=== PATIENT | female | born 1940 | race Caucasian/White ===

== ENCOUNTER 2018-06-17 19:41 | Emergency (ER) | payer MEDICARE, OTHER ==
--- NOTE | 2018-06-17 20:23 | ED.PDOC ---
History of Present Illness - General Chief Complaint: GI Problem Stated Complaint: diarrhea several weeks Time Seen by Provider: 06/17/18 19:53 Source: patient Exam Limitations: no limitations - History of Present Illness Initial Comments: Patient presents with diarrhea for 5 weeks. She says that she has up to three loose bms per day and that she has to use Immodium to make it stop. She reports that she can go a day or two every once in a while without diarrhea. She has not been eating as well but she says that is because she is the process of moving from [place] to [place] and that has been very busy for her. She has occasionally had N/V but it is not a daily or even a weekly symptom. No travel out of the country nor recent camping. No similarly sick contacts. Denies abdominal pain. She is s/p appendectomy/cholecystoectomy/TAHBSO/partial gastrectomy due to ulcers. She has been drinking a lot more water but not urinating more. She has IDDM and says that her blood sugars have been running 200-400s. She is 89 here today. No other complaints. Timing/Duration: other - 5 weeks Severity: moderate Improving Factors: nothing Worsening Factors: nothing Associated Symptoms: loss of appetite, nausea/vomiting Allergies/Adverse Reactions: Allergies NO KNOWN ALLERGY Allergy (Verified 07/14/16 08:22) Home Medications: Ambulatory Orders Szsnwdbcfmcxu-Ztka-Bprcllmliz [Fioricet] 1 ea PO Q8H PRN #21 tab 07/14/16 Atenolol [Tenormin] 50 mg PO DAILY 07/14/16 Cetirizine HCl 10 mg PO DAILY 07/14/16 Furosemide [Lasix] 20 mg PO DAILY 07/14/16 Gabapentin [Neurontin] 600 mg PO BID 07/14/16 Insulin Aspart [Novolog] See Protocol SC ACHS 07/14/16 Insulin Glargine [Lantus Solostar] 80 units SC BEDTIME 07/14/16 Insulin Glargine [Lantus Solostar] 90 unit SC DAILY@0700 07/14/16 Lisinopril & Hydrochlorothiazi [Lisinopril/Hctz 20-25 mg] 1 tab PO DAILY Metformin HCl 500 mg PO QPM 07/14/16 Omeprazole Magnesium [Prilosec Otc] 20 mg PO ACBK 07/14/16 Potassium Chloride Tab [K-Dur] 20 meq PO DAILY 07/14/16 Sertraline HCl [Zoloft] 100 mg PO DAILY 07/14/16 Warfarin Sodium 7.5 mg PO BEDTIME 07/14/16 Tizanidine HCl [Zanaflex] 4 mg PO Q8H #20 cap 07/16/16 Amoxicillin & Pot Clavulanate [Augmentin Tab] 875 mg PO TID #30 tab 06/17/18 Review of Systems - Review of Systems Constitutional: States: no symptoms reported EENTM: States: no symptoms reported Respiratory: States: no symptoms reported Cardiology: States: no symptoms reported Gastrointestinal/Abdominal: States: see HPI Genitourinary: States: see HPI Musculoskeletal: States: no symptoms reported Skin: States: no symptoms reported Neurological: States: no symptoms reported Endocrine: States: no symptoms reported Hematologic/Lymphatic: States: no symptoms reported Past Medical History (General) - Patient Medical History Hx Seizures: No Hx Stroke: Yes Hx Asthma: No Hx of COPD: Yes Hx Cardiac Disorders: Yes - A-fib Hx Congestive Heart Failure: Yes Hx Pacemaker: No Hx Hypertension: Yes Hx Diabetes: Yes Hx Gastroesophageal Reflux: Yes Hx Cancer: Yes - uterine Hx MRSA: No Surgical History: appendectomy, cholecystectomy, gastric bypass, Hysterectomy - Vaccination History Hx Tetanus, Diphtheria Vaccination: Yes Hx Influenza Vaccination: Yes Hx Pneumococcal Vaccination: No - Social History Hx Tobacco Use: Yes Hx Alcohol Use: No Hx Substance Use: No Hx Physical Abuse: No Hx Emotional Abuse: Yes Family Medical History - Family History Mother Living Status: Hx Cardiac Disease: Yes Hx Family Diabetes: Yes Physical Exam - Physical Exam General Appearance: Alert Eye Exam: bilateral normal Ears, Nose, Throat: hearing grossly normal, normal ENT inspection Neck: non-tender, full range of motion, supple Respiratory: lungs clear, normal breath sounds Cardiovascular/Chest: normal peripheral pulses, regular rate, rhythm, no edema Gastrointestinal/Abdominal: normal bowel sounds, non tender, soft Back Exam: normal inspection, no CVA tenderness Extremity: normal range of motion, non-tender, normal inspection Neurologic: admeasurer II-XII nml as tested, no motor/sensory deficits, alert, normal mood/affect, oriented x 3 Skin Exam: normal color Lymphatic: no adenopathy Progress - Progress Progress: 06/17/18 22:10 Laboratory Tests 06/17/18 06/17/18 06/17/18 19:57 20:22 20:25 WBC 9.8 RBC 5.04 Hgb 15.8 Hct 47.5 H MCV 94.3 MCH 31.3 H MCHC 33.3 RDW 13.8 Plt Count 299 MPV 8.6 Absolute Neuts (auto) 5.50 Absolute Lymphs (auto) 3.50 H Absolute Monos (auto) 0.60 Absolute Eos (auto) 0.20 Absolute Basos (auto) 0.10 Neutrophils % 55.6 Lymphocytes % 36.0 Monocytes % 5.7 Eosinophils % 2.1 Basophils % 0.6 PT INR Sodium Potassium Chloride Carbon Dioxide Anion Gap BUN Creatinine BUN/Creatinine Ratio POC Glucose 188 H Random Glucose Serum Osmolality Calcium Total Bilirubin AST ALT Alkaline Phosphatase Serum Total Protein Albumin Globulin Albumin/Globulin Ratio Lipase Urine Color Yellow Urine Appearance Sl cloudy Urine pH 5.5 Ur Specific [place] 1.015 Urine Protein Negative Urine Glucose (UA) Negative Urine Ketones Negative Urine Blood Small H Urine Nitrite Positive H Urine Bilirubin Negative Urine Urobilinogen 0.2 Ur Leukocyte Esterase Negative Urine RBC 0 Urine WBC 5-10 H Ur Epithelial Cells 3-5 Urine Bacteria 4+ H 06/17/18 06/17/18 20:25 20:25 WBC RBC Hgb Hct MCV MCH MCHC RDW Plt Count MPV Absolute Neuts (auto) Absolute Lymphs (auto) Absolute Monos (auto) Absolute Eos (auto) Absolute Basos (auto) Neutrophils % Lymphocytes % Monocytes % Eosinophils % Basophils % PT 29.2 H* INR 2.95 H Sodium 139 Potassium 4.3 Chloride 103 Carbon Dioxide 26 Anion Gap 14.3 BUN 23 H Creatinine 0.91 BUN/Creatinine Ratio 25.3 H POC Glucose Random Glucose 220 H Serum Osmolality 288.0 Calcium 9.3 Total Bilirubin 0.3 AST 17 ALT 14 Alkaline Phosphatase 123 H Serum Total Protein 8.5 H Albumin 4.2 Globulin 4.3 H Albumin/Globulin Ratio 1.0 L Lipase 27 Urine Color Urine Appearance Urine pH Ur Specific [place] Urine Protein Urine Glucose (UA) Urine Ketones Urine Blood Urine Nitrite Urine Bilirubin Urine Urobilinogen Ur Leukocyte Esterase Urine RBC Urine WBC Ur Epithelial Cells Urine Bacteria CT ab/pelvis showed acute divirticulitis. UA showed UTI. For therapeutic advantage and avoidance of side effects, Augmentin 875 mg po tid was chose. Patient instructed to follow up with her pcp in three days. Care instructions given. E.R. warnings given. Questions were elicited and and answered. The patient voiced understanding and agreement with the plan. Departure - Departure Clinical Impression: Diverticulitis Disposition: Discharge to Home or Self Care Condition: Good Departure Forms: ED Discharge - Pt. Copy, Patient Portal Self Enrollment Diet: diabetic diet Activity: increase activity as tolerated Prescriptions: Amoxicillin & Pot Clavulanate [Augmentin Tab] 875 mg PO TID #30 tab Home Medications: Ambulatory Orders Wkhsdydhdkgqp-Wdva-Ytuqwfoehn [Fioricet] 1 ea PO Q8H PRN #21 tab 07/14/16 Atenolol [Tenormin] 50 mg PO DAILY 07/14/16 Cetirizine HCl 10 mg PO DAILY 07/14/16 Furosemide [Lasix] 20 mg PO DAILY 07/14/16 Gabapentin [Neurontin] 600 mg PO BID 07/14/16 Insulin Aspart [Novolog] See Protocol SC ACHS 07/14/16 Insulin Glargine [Lantus Solostar] 80 units SC BEDTIME 07/14/16 Insulin Glargine [Lantus Solostar] 90 unit SC DAILY@0700 07/14/16 Lisinopril & Hydrochlorothiazi [Lisinopril/Hctz 20-25 mg] 1 tab PO DAILY Metformin HCl 500 mg PO QPM 07/14/16 Omeprazole Magnesium [Prilosec Otc] 20 mg PO ACBK 07/14/16 Potassium Chloride Tab [K-Dur] 20 meq PO DAILY 07/14/16 Sertraline HCl [Zoloft] 100 mg PO DAILY 07/14/16 Warfarin Sodium 7.5 mg PO BEDTIME 07/14/16 Tizanidine HCl [Zanaflex] 4 mg PO Q8H #20 cap 07/16/16 Amoxicillin & Pot Clavulanate [Augmentin Tab] 875 mg PO TID #30 tab 06/17/18 Additional Instructions: See a primary care physician in three days to reassess the need for further antibiotics. Return to the E.R. for worsening symptoms, abdominal pain, or temperature above 100.4.
--- NOTE | 2018-06-17 21:44 | CT ---
EXAM DESCRIPTION: Abdomen/Pelvis w/wo Contrast CLINICAL HISTORY: 78 years Female diarrhea for 5 weeks, IV contrast only COMPARISON: None. TECHNIQUE: Contiguous axial images obtained through the abdomen and pelvis following IV contrast. Reformatted images obtained. This exam was performed according to our department optimization program which includes automated exposure control, adjustment of the mA and/or kv according to patient size and/or use of iterative reconstruction technique. FINDINGS: Fatty infiltration of the liver. Spleen is enlarged measuring 14.8 cm. Pancreas is unremarkable. No adrenal masses. The kidneys appear unremarkable. No hydronephrosis. The gallbladder is surgically absent with mild extrahepatic ductal dilatation. No aneurysmal dilatation of the aorta. Vascular calcification. No bowel obstruction. The appendix is not seen. Diverticulosis. There is inflammation along the descending colon diverticulum with adjacent stranding consistent with acute uncomplicated diverticulitis. IMPRESSION: Acute uncomplicated diverticulitis in the descending colon Enlarged spleen Fatty liver Electronically signed by: Jen Nguyễn MD 06/17/2018 9:43 PM CDT
[2018-06-17 21:45] VITALS: TEMP 97.4; O2SAT 94
[2018-06-17] MEDS ORDERED: AMOXICILLIN & POT CLAVULANATE 875 MG TAB PO ONE (22:16)
[2018-06-17 22:27] VITALS: BP 128/63
== END 2018-06-17 22:27 | disposition home or self-care (01) ==
LOC: ER 19:41
DX: K57.92 Diverticulitis of intestine, part unspecified, without perforation or abscess without bleeding (principal); J44.9 Chronic obstructive pulmonary disease, unspecified; I48.91 Unspecified atrial fibrillation; I11.0 Hypertensive heart disease with heart failure; I50.9 Heart failure, unspecified; E11.9 Type 2 diabetes mellitus without complications; N39.0 Urinary tract infection, site not specified; Z86.73 Personal history of transient ischemic attack (TIA), and cerebral infarction without residual deficits; Z79.4 Long term (current) use of insulin; Z85.42 Personal history of malignant neoplasm of other parts of uterus

== ENCOUNTER 2018-07-14 12:49 | Inpatient (IN) | payer MEDICARE ==
[2018-07-14] MEDS ORDERED: ASPIRIN (CHEWABLE) 81 MG TAB PO ONE (13:11)
[2018-07-14] MEDS ORDERED: IPRATROPIUM/ALBUTEROL 3 ML VIAL NEB ONE (13:11)
[2018-07-14] MEDS ORDERED: FUROSEMIDE INJ 40 MG/4 ML VIAL IV ONE (13:13)
[2018-07-14] MEDS ORDERED: NITROGLYCERIN 2% 1 GM UD TOP ONE (13:14)
--- NOTE | 2018-07-14 13:41 | ED.PDOC ---
History of Present Illness - General Chief Complaint: Respiratory Problem Stated Complaint: shortness of breath Time Seen by Provider: 07/14/18 13:05 Source: patient Exam Limitations: no limitations - History of Present Illness Initial Comments: Patient presents with dyspnea since last night. She has a history of CHF and atrial fibrillation. She says she has had chest "tightness" as well. She has had these episodes before and says they have all been an exacerbation of her CHF. She has occasion bipedal edema and takes Lasix for the CHF. She says she used to smoke but denies any diagnosis of COPD. No cough. No fever. No other complaints. Timing/Duration: 24 hours Severity: moderate Improving Factors: nothing Worsening Factors: nothing Associated Symptoms: denies symptoms Allergies/Adverse Reactions: Allergies NO KNOWN ALLERGY Allergy (Verified 07/14/18 13:04) Home Medications: Ambulatory Orders Atenolol [Tenormin] 50 mg PO DAILY 07/14/16 Cetirizine HCl 10 mg PO DAILY 07/14/16 Furosemide [Lasix] 40 mg PO DAILY 07/14/16 Gabapentin [Neurontin] 600 mg PO BID 07/14/16 Insulin Aspart [Novolog] See Protocol SC ACHS 07/14/16 Insulin Glargine [Lantus Solostar] 80 units SC BEDTIME 07/14/16 Insulin Glargine [Lantus Solostar] 90 unit SC DAILY@0700 07/14/16 Lisinopril & Hydrochlorothiazi [Lisinopril/Hctz 20-25 mg] 1 tab PO DAILY Metformin HCl 500 mg PO DAILY 07/14/16 Omeprazole Magnesium [Prilosec Otc] 20 mg PO ACBK 07/14/16 Potassium Chloride Tab [K-Dur] 20 meq PO DAILY 07/14/16 Sertraline HCl [Zoloft] 100 mg PO DAILY 07/14/16 Tizanidine HCl [Zanaflex] 4 mg PO Q8H #20 cap 07/16/16 Warfarin Sodium [Coumadin] 3 mg PO DAILY 07/14/18 Warfarin Sodium [Coumadin] 5 mg PO DAILY 07/14/18 Review of Systems - Review of Systems Constitutional: States: no symptoms reported EENTM: States: no symptoms reported Respiratory: States: see HPI Cardiology: States: see HPI Gastrointestinal/Abdominal: States: no symptoms reported Genitourinary: States: no symptoms reported Musculoskeletal: States: no symptoms reported Skin: States: no symptoms reported Neurological: States: no symptoms reported Endocrine: States: no symptoms reported Hematologic/Lymphatic: States: no symptoms reported Past Medical History (General) - Patient Medical History Hx Seizures: No Hx Stroke: Yes Hx Asthma: No Hx of COPD: Yes Hx Cardiac Disorders: Yes - A-fib Hx Congestive Heart Failure: Yes Hx Pacemaker: No Hx Hypertension: Yes Hx Diabetes: Yes Hx Gastroesophageal Reflux: Yes Hx Cancer: Yes - uterine Hx MRSA: No Surgical History: cholecystectomy, Hysterectomy - Vaccination History Hx Tetanus, Diphtheria Vaccination: No Hx Influenza Vaccination: Yes Hx Pneumococcal Vaccination: Yes Immunizations Up to Date: Yes - Social History Hx Tobacco Use: Yes Hx Alcohol Use: No Hx Substance Use: No Hx Physical Abuse: No Hx Emotional Abuse: Yes - Female History Patient is a Female of Child Bearing Age (10 -59 yrs old): No Family Medical History - Family History Mother Living Status: Hx Cardiac Disease: Yes Hx Family Diabetes: Yes Physical Exam - Physical Exam General Appearance: Alert Eye Exam: bilateral normal Ears, Nose, Throat: normal ENT inspection Neck: non-tender, full range of motion, supple Respiratory: other - Distant breath sounds. No rales/rhonchi/wheezes Cardiovascular/Chest: normal peripheral pulses, regular rate, rhythm, no edema Gastrointestinal/Abdominal: normal bowel sounds, non tender, soft Back Exam: normal inspection, no CVA tenderness Extremity: normal range of motion, non-tender, normal inspection Neurologic: game engineer II-XII nml as tested, no motor/sensory deficits, alert, normal mood/affect, oriented x 3 Skin Exam: normal color Lymphatic: no adenopathy Progress - Progress Progress: 07/14/18 17:51 Laboratory Tests 07/14/18 07/14/18 07/14/18 13:04 13:06 13:06 WBC RBC Hgb Hct MCV MCH MCHC RDW Plt Count MPV Absolute Neuts (auto) Absolute Lymphs (auto) Absolute Monos (auto) Absolute Eos (auto) Absolute Basos (auto) Neutrophils % Lymphocytes % Monocytes % Eosinophils % Basophils % PT 22.1 H INR 2.23 H PTT (SP) 39.2 H Sodium 135 Potassium 4.1 Chloride 100 L Carbon Dioxide 27 Anion Gap 12.1 BUN 13 Creatinine 0.64 BUN/Creatinine Ratio 20.3 H POC Glucose Random Glucose 266 H Serum Osmolality 279.5 Calcium 9.3 Magnesium 1.6 L Total Bilirubin 0.8 AST 16 ALT 13 Alkaline Phosphatase 129 H Creatine Kinase 30 CK-MB (CK-2) 1.2 CK-MB (CK-2) % Not Reportable Troponin I 0.01 B-Natriuretic Peptide 317.0 H* Serum Total Protein 8.1 Albumin 3.7 Globulin 4.4 H Albumin/Globulin Ratio 0.8 L Urine Color Urine Appearance Urine pH Ur Specific [place] Urine Protein Urine Glucose (UA) Urine Ketones Urine Blood Urine Nitrite Urine Bilirubin Urine Urobilinogen Ur Leukocyte Esterase Urine RBC Urine WBC Ur Epithelial Cells Urine Bacteria 07/14/18 07/14/18 07/14/18 13:10 13:10 13:25 WBC 11.3 H RBC 4.73 Hgb 14.9 Hct 44.0 MCV 93.1 MCH 31.5 H MCHC 33.8 RDW 14.2 Plt Count 253 MPV 8.4 Absolute Neuts (auto) 9.10 H Absolute Lymphs (auto) 1.70 Absolute Monos (auto) 0.40 Absolute Eos (auto) 0.00 Absolute Basos (auto) 0.10 Neutrophils % 80.6 H Lymphocytes % 14.8 L Monocytes % 3.4 Eosinophils % 0.4 L Basophils % 0.8 PT INR PTT (SP) Sodium Potassium Chloride Carbon Dioxide Anion Gap BUN Creatinine BUN/Creatinine Ratio POC Glucose 281 H Random Glucose Serum Osmolality Calcium Magnesium Total Bilirubin AST ALT Alkaline Phosphatase Creatine Kinase CK-MB (CK-2) CK-MB (CK-2) % Troponin I B-Natriuretic Peptide Serum Total Protein Albumin Globulin Albumin/Globulin Ratio Urine Color Yellow Urine Appearance Clear Urine pH 6.5 Ur Specific [place] 1.010 Urine Protein Negative Urine Glucose (UA) Negative Urine Ketones Negative Urine Blood Trace-lysed H Urine Nitrite Positive H Urine Bilirubin Negative Urine Urobilinogen 0.2 Ur Leukocyte Esterase Negative Urine RBC 0-1 Urine WBC 0 Ur Epithelial Cells 0-1 Urine Bacteria 3+ H Patient was given Lasix 40 mg IV x one and nitropaste 1 inch to the chest. Her dyspnea resolved and she had excellent urine output. However, her oxygen saturations stayed between 88-90 on RA. Cardiac enzyme negative. EKG read by me showed atrial fibrillation with a normal rate. 11/26/18 17:54 CXR showed chronic fibrotic changes but no vascular congestion nor pneumonia. Patient was admitted for observation and slow diuresis. Departure - Departure Clinical Impression: CHF exacerbation Disposition: Discharge to Home or Self Care Condition: Good Departure Forms: ED Discharge - Pt. Copy, Patient Portal Self Enrollment Diet: other - as per hospitalist Activity: other - as per hospitalist Referrals: SHANON FINCH IV, BL[employer] MOLD OPERATOR [Primary Care Provider] - 1-2 Weeks Home Medications: Ambulatory Orders Atenolol [Tenormin] 50 mg PO DAILY 07/14/16 Cetirizine HCl 10 mg PO DAILY 07/14/16 Furosemide [Lasix] 40 mg PO DAILY 07/14/16 Gabapentin [Neurontin] 600 mg PO BID 07/14/16 Insulin Aspart [Novolog] See Protocol SC ACHS 07/14/16 Insulin Glargine [Lantus Solostar] 80 units SC BEDTIME 07/14/16 Insulin Glargine [Lantus Solostar] 90 unit SC DAILY@0700 07/14/16 Lisinopril & Hydrochlorothiazi [Lisinopril/Hctz 20-25 mg] 1 tab PO DAILY Metformin HCl 500 mg PO DAILY 07/14/16 Omeprazole Magnesium [Prilosec Otc] 20 mg PO ACBK 07/14/16 Potassium Chloride Tab [K-Dur] 20 meq PO DAILY 07/14/16 Sertraline HCl [Zoloft] 100 mg PO DAILY 07/14/16 Tizanidine HCl [Zanaflex] 4 mg PO Q8H #20 cap 07/16/16 Warfarin Sodium [Coumadin] 3 mg PO DAILY 07/14/18 Warfarin Sodium [Coumadin] 5 mg PO DAILY 07/14/18
--- NOTE | 2018-07-14 13:44 | RAD ---
EXAM DESCRIPTION: Chest,1 View CLINICAL HISTORY: dyspnea COMPARISON: July 16, 2016 IMPRESSION: Single AP portable upright view of the chest shows enlargement of the cardiomediastinal silhouette without pulmonary vascular congestion. The lungs are hypoaerated. Chronic increased interstitial fibrotic changes to lungs are again seen most prominent in the right upper lobe similar to previous exam. No new infiltrates or consolidations are seen. No evidence of pleural effusion or pneumothorax. Electronically signed by: Loco Mathews MD 07/14/2018 1:42 PM [facility]
[2018-07-14] MEDS ORDERED: SULFA/TRIMETH 800/160 (DS) TAB 1 EA TAB PO ONE (14:34)
--- NOTE | 2018-07-14 18:10 | HP ---
SUPERVISING PHYSICIAN: Bryan Cox MD CHIEF COMPLAINT: Shortness of breath. HISTORY OF PRESENT ILLNESS: This is a 78-year-old female patient who has a history of congestive heart failure. Two nights ago, she started having some shortness of breath. She has had an exacerbation of her congestive heart failure in the past and knew she was having problems. She did not take any extra medications or anything for her congestive heart failure. It progressively worsened over the next 36 hours and she came to the Emergency Room. She just recently moved to [place] from [place]. Her daughter lives here in [place]. She has seen Blair Ybarra in the past, but her primary care physician is in [place]. In the Emergency Room, her labs showed WBC 11.3, hemoglobin 14.9, hematocrit 44. She had a left shift on her differential. INR was 2.23. She is on chronic Coumadin therapy for her atrial fibrillation. Electrolytes showed a sodium 135, potassium 4.1, chloride 100, carbon dioxide 27 , BUN 13, creatinine 0.64. Glucose 266, calcium 9.3, magnesium 1.6. Alkaline phosphatase was 129 and BNP was 317. Urinalysis showed trace lysed urine blood , positive for urine nitrites and 3+ urine bacteria. Her chest x-ray showed enlargement of the cardiomediastinal silhouette without pulmonary vascular congestion and the lungs are hyper-aerated, chronic increased interstitial fibrotic changes to the lungs are again seen, more prominent in the right upper lobe. She was given some Lasix as well as some nitro paste. She was also given a dose of Bactrim for the urinary tract infection. After administration of the Lasix, her blood pressure did drop to 95/43. Shortly thereafter, it was 95/43 again and her systolic blood pressure stayed in the low 100s. I was called for hospital admission. PAST MEDICAL HISTORY: 1. Congestive heart failure diagnosed in 2007 with her last echocardiogram showing an ejection fraction of 65% and stage 2 diastolic dysfunction. 2. Hypertension. 3. Osteoarthritis. 4. Diabetes mellitus, type 2. 5. Chronic atrial fibrillation on Coumadin. 6. Seasonal allergies. 7. Gastroesophageal reflux disease. 8. History of depression and anxiety. PAST SURGICAL HISTORY: 1. Appendectomy. 2. Cholecystectomy. 3. Hysterectomy with bilateral salpingo-oophorectomy at age 39. 4. Partial gastrectomy. 5. Right third toe amputation. 6. Tonsillectomy and adenoidectomy as a child. OUTPATIENT MEDICATIONS: Per the EMR and awaiting verification. ALLERGIES: NO KNOWN DRUG ALLERGIES. FAMILY HISTORY: Positive for colon cancer and ulcers. SOCIAL HISTORY: She is retired from [employer]. She lives with her ex- and her daughter. She just recently moved to [place] from [place]. She quit smoking in 1989, but she has smoked 2 to 3 packs of cigarettes per day for 25 years prior to that. She drinks alcoholic beverages rarely. She denies any illicit drug use. REVIEW OF SYSTEMS: GENERAL: Positive for fatigue. Negative for fever or weight changes. HEENT: Positive for seasonal allergies. Negative for ear pain, vision changes or sore throat. RESPIRATORY: Positive for shortness of breath and occasional wet cough. Negative for wheezing. CARDIAC: Negative for chest pain, palpitations or tachycardia. GASTROINTESTINAL: Negative for nausea, vomiting, diarrhea, constipation. GENITOURINARY: Negative for hematuria, dysuria or polyuria. MUSCULOSKELETAL: Negative for arthralgias, myalgias. SKIN: Negative for lesions or rashes. NEUROLOGIC: Negative for headache, dizziness or seizures. PHYSICAL EXAMINATION: VITAL SIGNS: Temperature 99.1. Heart rate has been 77 to 92 beats per minute. Blood pressure has been as low as 95/43. It is now 149/68. Respiratory rate has been as high as 22. It is now 18. O2 saturation has been down to 84% and is now 91% on 2 liters nasal cannula. GENERAL: This is a 78-year-old obese female patient. She is lying in her hospital bed and is in no acute distress. HEENT: Normocephalic, atraumatic. Pupils are equal and reactive. Oropharynx is clear. NECK: Supple without mass. No discernible jugular venous distention. RESPIRATORY: Scattered crackles throughout and slightly diminished at the bases. CHEST: There is equal rise and fall of the chest with inspiration and expiration. CARDIOVASCULAR: Regular rate and irregular rhythm. GASTROINTESTINAL: Abdomen is soft, nondistended, nontender. Bowel sounds are positive. EXTREMITIES: No cyanosis, clubbing or edema. NEUROLOGIC: Awake, alert and oriented times three. LABORATORY: Labs and films are as per history of present illness. There is a urine culture pending. IMPRESSION: 1. Congestive heart failure exacerbation with diastolic dysfunction. Her ejection fraction is 65% per echocardiogram in 2007. 2. Hypoxia secondary to #1. 3. Urinary tract infection. 4. Hypomagnesemia. 5. Chronic atrial fibrillation on Coumadin. 6. Diabetes mellitus, type 2. 7. Hypertension. PLAN: We will admit the patient to the hospital. I have initiated congestive heart failure guidelines. We need to obtain her records from her primary care physician in [place]. I have given her magnesium replacement and we will recheck her labs in the morning. I will continue the Bactrim she was started on in the Emergency Room for her urinary tract infection. She is on her routine medications, so she is on a beta guille and an PRASHANT inhibitor. I will give her IV Lasix tomorrow. She has a Carpio catheter and we will need to do bladder training in the next 24 to 48 hours so we can discontinue that. She is also on the monitor. I will check her PT, INR in the morning to continue her Coumadin. I put her on sliding scale blood sugar checks with a.c. and h.s. coverage of short-acting insulin. I will restart her home medications as soon as they are verified. I have also ordered an ambulation study as she may need home oxygen. We will continue to monitor the patient closely and follow as needed. Dr. Cox is the collaborating physician and available for consultation. #[id number] [facility]
[2018-07-14] MEDS ORDERED: NITROGLYCERIN 0.4 MG 25 EA TAB SL PRN (19:20)
[2018-07-14] MEDS ORDERED: ONDANSETRON INJ 4 MG/2 ML VIAL IV PRN (19:20)
[2018-07-14] MEDS ORDERED: SODIUM CHLORIDE 0.9% (FLUSH) 10 ML SYG IV PRN (19:20)
[2018-07-14] MEDS ORDERED: IV SET AND CAP CHANGE INJ INJ SCH (19:30)
[2018-07-14] MEDS: PANTOPRAZOLE SODIUM IV 40 MG VIAL IV SCH (21:02)
[2018-07-14] MEDS: SULFA/TRIMETH 800/160 (DS) TAB 1 EA TAB PO SCH (21:04)
[2018-07-14] MEDS: SODIUM CHLORIDE 0.9% (FLUSH) 10 ML SYG IV SCH (21:04)
[2018-07-14] MEDS ORDERED: GLUCAGON INJ 1 MG VIAL SUBCU PRN (22:08)
[2018-07-14] MEDS ORDERED: DEXTROSE 50% 25 GM/50 ML SYG IV PRN (22:08)
[2018-07-14] MEDS ORDERED: MAGNESIUM SULFATE PREMIX 2GM 2 GM in PREMIX BAG 1 BAG IVPB ONE (22:11)
[2018-07-14] MEDS ORDERED: MAGNESIUM SULFATE PREMIX 2GM 50 ML IVPB ONE (22:21)
[2018-07-14] MEDS: INSULIN LISPRO 100 UNITS/ML PEN SUBCU SCH (22:38)
[2018-07-15] MEDS: INSULIN LISPRO 100 UNITS/ML PEN SUBCU SCH ×4 (07:40→20:50)
[2018-07-15] MEDS: SODIUM CHLORIDE 0.9% (FLUSH) 10 ML SYG IV SCH ×2 (08:50→20:39)
[2018-07-15] MEDS: NITROGLYCERIN 2% 1 GM UD TOP SCH ×2 (08:50→16:22)
[2018-07-15] MEDS: SULFA/TRIMETH 800/160 (DS) TAB 1 EA TAB PO SCH ×2 (08:50→20:38)
[2018-07-15] MEDS: FUROSEMIDE INJ 40 MG/4 ML VIAL IV SCH ×2 (08:50→17:28)
[2018-07-15] MEDS ORDERED: NON-FORMULARY MEDICATION 1 EA MIS (Gabapentin [Neurontin] 600 MG) PO SCH (11:45)
[2018-07-15] MEDS ORDERED: NON-FORMULARY MEDICATION 1 EA MIS (Lisinopril & Hydrochlorothiazi [Lisinopril/Hctz 20-25 M PO SCH (11:45)
[2018-07-15] MEDS ORDERED: METFORMIN HCL 500 MG PO SCH (11:45)
[2018-07-15] MEDS ORDERED: LISINOPRIL 10 MG TAB ONE (12:02)
[2018-07-15] MEDS ORDERED: GABAPENTIN 300 MG CAP ONE (12:02)
[2018-07-15] MEDS ORDERED: hydroCHLOROthiazide 25 MG TAB ONE (12:03)
[2018-07-15] MEDS ORDERED: metFORMIN HCL 500 MG TAB ONE (12:03)
[2018-07-15] MEDS: CETIRIZINE HCL 10 MG TAB PO SCH (12:28)
[2018-07-15] MEDS: ATENOLOL 25 MG TAB PO SCH (12:29)
[2018-07-15] MEDS: SERTRALINE HCL 50 MG TAB PO SCH (12:29)
[2018-07-15] MEDS: WARFARIN SODIUM 5 MG TAB PO SCH (12:33)
[2018-07-15] MEDS ORDERED: WARFARIN SODIUM 3 MG TAB PO ONE (12:40)
[2018-07-15] MEDS: PANTOPRAZOLE SODIUM IV 40 MG VIAL IV SCH (19:43)
[2018-07-15] MEDS: GABAPENTIN 300 MG CAP PO SCH (20:39)
[2018-07-15] MEDS: INSULIN DETEMIR 100 UNITS/ML PEN SUBCU SCH (20:51)
--- NOTE | 2018-07-15 20:54 | PN ---
DATE: 07/15/18 SUPERVISING PHYSICIAN: Bryan Cox M.D. SUBJECTIVE: The patient is sitting up in her chair in her room. Her daughter is at the bedside. She still gets short of breath at times and continues to need her oxygen. She has less weakness today. She denies any chest pain, nausea, vomiting, diarrhea or constipation. She did express a need for help with getting established with Blair Ybarra as a primary care provider after discharge and she would also like some information on Medicare coverage in this area. She is going to change her Medicare coverage since she has moved to [place]. OBJECTIVE: VITAL SIGNS: She is afebrile, heart rate 94, blood pressure 128/77, respiratory rate 20, O2 sat is 92% on 2 liters nasal cannula. RESPIRATORY: Essentially clear to auscultation bilaterally. She does have a few scattered crackles occasionally. CARDIAC: Regular rate and rhythm. GASTROINTESTINAL: Abdomen is soft, nondistended, non-tender. Bowel sounds are positive. EXTREMITIES: No clubbing, cyanosis or edema. NEUROLOGIC: She is awake, alert and oriented times three. LABORATORY: WBCs have improved to 10,800 with hemoglobin 14.8, hematocrit 44.8. Neutrophils are 72.5%. INR is 1.9. Blood sugars have run between 183 and 281. Electrolytes are basically within normal limits. Magnesium has improved to 2. BUN 19, creatinine 0.96. Urine culture is pending. All other labs and films have been reviewed via the EMR. ASSESSMENT: 1. Congestive heart failure exacerbation with diastolic dysfunction. Her ejection fraction is 65% per echocardiogram in 2007. 2. Hypoxia secondary to #1. 3. Urinary tract infection. 4. Hypomagnesemia. 5. Chronic atrial fibrillation on Coumadin. 6. Diabetes mellitus, type 2. 7. Hypertension. PLAN: We will continue present supportive care. I have transitioned her from IV Lasix to oral Lasix to be started in the morning. We have done bladder training and will discontinue her Carpio in the morning. I ordered an ambulation study yesterday for home oxygen but the patient is nonambulatory and I will discuss with Respiratory Therapy tomorrow as I believe that the patient needs home oxygen. She uses a motorized wheelchair. I have ordered lab for in the morning, including a PT and INR. I have also requested her medical records from her doctor in [place], Dr. Sales. She would like to see Blair Ybarra, FROILAN, as an outpatient. She also wants to change her Medicare insurance so I have consulted Social Service to assist her with that as well as assisting if there is any help with obtaining her Levemir insulin. Her blood sugars have been around 200 today and I have restarted her home Levemir insulin. She was taking 80 units at night and 90 units in the morning. I have decreased her Levemir to 40 b.i.d. for now. I will evaluate her blood sugars in the morning. I will get her medical records to Blair Ybarra so she can followup with him as an outpatient. Will continue to monitor closely and follow as needed.. Dr. Cox is the collaborating physician available for consultation. #[id number] [facility]
[2018-07-15] MEDS ORDERED: INSULIN DETEMIR 100 UNITS/ML PEN SUBCU SCH (21:00)
[2018-07-15] MEDS ORDERED: metFORMIN HCL 500 MG TAB PO SCH (21:00)
[2018-07-16] MEDS: INSULIN LISPRO 100 UNITS/ML PEN SUBCU SCH ×2 (07:52→12:00)
[2018-07-16] MEDS ORDERED: hydroCHLOROthiazide 25 MG TAB PO SCH (09:00)
[2018-07-16] MEDS ORDERED: INSULIN DETEMIR 100 UNITS/ML PEN SUBCU SCH (09:00)
[2018-07-16] MEDS ORDERED: POTASSIUM CHLORIDE 20 MEQ TAB PO SCH (09:00)
[2018-07-16] MEDS ORDERED: FUROSEMIDE 40 MG TAB PO SCH (09:00)
[2018-07-16] MEDS ORDERED: LISINOPRIL 10 MG TAB PO SCH (09:00)
[2018-07-16] MEDS: GABAPENTIN 300 MG CAP PO SCH (09:38)
[2018-07-16] MEDS: NITROGLYCERIN 2% 1 GM UD TOP SCH ×2 (09:38→15:00)
[2018-07-16] MEDS: CETIRIZINE HCL 10 MG TAB PO SCH (09:39)
[2018-07-16] MEDS: SERTRALINE HCL 50 MG TAB PO SCH (09:39)
[2018-07-16] MEDS: WARFARIN SODIUM 5 MG TAB PO SCH (09:39)
[2018-07-16] MEDS: SULFA/TRIMETH 800/160 (DS) TAB 1 EA TAB PO SCH (09:39)
[2018-07-16] MEDS: ATENOLOL 25 MG TAB PO SCH (09:39)
[2018-07-16] MEDS: SODIUM CHLORIDE 0.9% (FLUSH) 10 ML SYG IV SCH (09:40)
[2018-07-16] MEDS: INSULIN DETEMIR 100 UNITS/ML PEN SUBCU SCH (09:46)
[2018-07-16] MEDS ORDERED: WARFARIN SODIUM 1 MG TAB PO SCH (12:30)
[2018-07-16 13:59] VITALS: BP 102/68; TEMP 97.2; O2SAT 93
--- NOTE | 2018-07-17 08:34 | DS ---
SUPERVISING PHYSICIAN: Bryan Cox MD DISCHARGE DIAGNOSIS: 1. Congestive heart failure exacerbation with diastolic dysfunction. Her ejection fraction is 65% per echocardiogram in 2007. 2. Hypoxia secondary to #1. 3. Urinary tract infection. 4. Hypomagnesemia. 5. Chronic atrial fibrillation on Coumadin. 6. Diabetes mellitus, type 2, on insulin therapy. 7. Hypertension. HISTORY OF PRESENT ILLNESS: This is a 78-year-old female patient who has a history of congestive heart failure. Two nights prior to admission, she had some shortness of breath. She has had an exacerbation of her congestive heart failure in the past and knew she was having some breathing problems. She did not take any extra medications or Lasix for her congestive heart failure. It progressively worsened over the next 36 hours and she came to the Emergency Room. She just recently moved to [place] from [place]. Her daughter lives here in [place]. She has seen Blair Ybarra in the past, but her primary care physician is in [place]. In the Emergency Room, her labs showed WBC 11.3, hemoglobin 14.9, hematocrit 44. She had a left shift on her differential. INR was 2.23. She is on chronic Coumadin therapy for her atrial fibrillation. Electrolytes showed a sodium 135, potassium 4.1, chloride 100, carbon dioxide 27 , BUN 13, creatinine 0.64. Glucose 266, calcium 9.3, magnesium 1.6. Alkaline phosphatase was 129 and BNP was 317. Urinalysis showed trace lysed urine blood , positive for urine nitrites and 3+ urine bacteria. Her chest x-ray showed enlargement of the cardiomediastinal silhouette without pulmonary vascular congestion and the lungs are hyper-aerated, chronic increased interstitial fibrotic changes to the lungs are again seen, more prominent in the right upper lobe. She was given some Lasix as well as some nitro paste. She was also given a dose of Bactrim for the urinary tract infection. After administration of the Lasix, her blood pressure did drop to 95/43. It continued to be in the mid-90s. I was called for hospital admission. HOSPITAL COURSE: The patient's home medications were resumed, which included an PRASHANT inhibitor, lisinopril, and a beta ugille, atenolol. She also takes p.o. furosemide at home. She was given aggressive diuretic therapy with 40 mg of Lasix IV b.i.d. A Carpio catheter was placed in the Emergency Room. Over the next 24 to 36 hours, she diuresed over 5000 mL. She had no further complaints of shortness of breath. Her Lasix was transitioned to p.o. and her vital signs remained stable with the exception of her oxygen saturation dropped to the mid-80s when she was on room air. Her oxygen dropped down to 85% with minimal exertion as the patient is nonambulatory, so home oxygen was ordered from [facility]. Her electrolytes are basically within normal limits. Her blood sugars have run between 199 and 281. Her Levemir was decreased while in the hospital to 40 mg b.i.d. She was taken 90 units in the morning and 80 units at night at home, but due to her different dietary habits here in the hospital, her long-acting insulin was decreased. She was also on a sliding scale insulin. Today, she is stable and will be discharged home. DISCHARGE PLAN: The patient will be discharged home in stable condition. She lives with her daughter here in [place]. We have requested her medical records from Dr. Sales in [place] and as soon as those are available, I will send them to her primary care provider, Blair Ybarra NP. She is on an PRASHANT inhibitor and a beta guille. It is recommended the patient get an echocardiogram. The last echocardiogram she has on record is from 2007 although I do not have her records to review. I have also decreased her Levemir to 50 units b.i.d. and she does need some financial assistance obtaining her Levemir. She is changing her Medicare plan this year. Our Continuing Education Dean gave her some information on Medicare plans. An order for home oxygen has been submitted to [facility]. It has been recommended she use her oxygen at night while sleeping and as needed during the day. She is to keep her O2 saturation above 88% and she is not to go above 2 liters nasal cannula. If she has to use more oxygen than 2 liters, she is to come to the Emergency Room or call her primary care provider. She will also have [facility]. The patient is on 8 mg of Coumadin and it is recommended that she have an INR checked at her followup visit with Blair Ybarra as her INR was slightly low today at 1.55. She has a followup appointment with Blair Ybarra NP, on 07/22/18 at 9:30 AM. Hopefully, we will have her medical records at that time to be sent to him. Bactrim will be continued for her urinary tract infection. She is to return to the hospital or followup with Blair Ybarra for any problems or complications. DISCHARGE MEDICATIONS: 1. Furosemide. 2. Cetirizine. 3. Atenolol. 4. Glargine insulin. 5. Lisinopril/hydrochlorothiazide. 6. Metformin. 7. Sertraline. 8. Gabapentin. 9. Potassium chloride. 10. Sliding scale NovoLog insulin. 11. Warfarin 8 mg daily. 12. Probiotic. 13. Osteo Bi-Flex. 14. Bactrim . #[id number] [facility]
== END 2018-07-16 15:35 | disposition home health service (06) | DRG 292 ==
LOC: ER 12:49 → OBSVTOIN 18:08 → MS 18:08
PROVIDERS: ADMIT Nurse Practitioner Acute Care; ATTEND Nurse Practitioner Acute Care
DX: I11.0 Hypertensive heart disease with heart failure (principal); N39.0 Urinary tract infection, site not specified; I50.33 Acute on chronic diastolic (congestive) heart failure; R09.02 Hypoxemia; E83.42 Hypomagnesemia; I48.2 Chronic atrial fibrillation; Z79.01 Long term (current) use of anticoagulants; E11.9 Type 2 diabetes mellitus without complications; Z79.4 Long term (current) use of insulin; Z79.84 Long term (current) use of oral hypoglycemic drugs

== ENCOUNTER → 2018-09-19 | Outpatient (CLI) | payer MEDICARE | LOC: YCHH 09:49 | PROVIDERS: ATTEND Family Medicine | DX: E11.9 Type 2 diabetes mellitus without complications (principal); N18.9 Chronic kidney disease, unspecified ==

== ENCOUNTER 2018-09-21 12:07 | Observation (INO) | payer MEDICARE, OTHER ==
[2018-09-21] MEDS ORDERED: ASPIRIN (CHEWABLE) 81 MG TAB PO ONE (12:09)
[2018-09-21] MEDS ORDERED: ONDANSETRON INJ 4 MG/2 ML VIAL IV ONE (12:10)
[2018-09-21] MEDS ORDERED: MORPHINE SULFATE INJ 10 MG/ML VIAL IV ONE (12:10)
[2018-09-21] MEDS ORDERED: NITROGLYCERIN 0.4 MG 25 EA TAB SL ONE ×2 (12:10→12:32)
[2018-09-21] MEDS ORDERED: ASPIRIN TABLET 325 MG TAB PO ONE (12:10)
--- NOTE | 2018-09-21 12:26 | ED.PDOC ---
History of Present Illness - General Chief Complaint: Chest Pain/MO Stated Complaint: chest pain Time Seen by Provider: 09/21/18 12:08 Source: patient Exam Limitations: no limitations - History of Present Illness Initial Comments: Aliza Colin 78 y/o female came to ER stating had tight gripping pain on left side of chest lasting for about 35-45 minutes became diaphoretic while attending catholic services about 1-2 hours ago also wit some sob but non radiating,no N/V.Has hiastory of a.fib on warfarin diagnosed 4 years ago.Had also thallium stres test done in the past but procedure was aborted since she felt head feels about to blow up and had severe headache while undergoing test in [facility] by the nursing assoc.Recently move to [place] 5 months ago no recent nursing assoc but has primary Md. Timing/Duration: 1-3 hours Severity: moderate Improving Factors: nothing Worsening Factors: nothing Associated Symptoms: other - see hpi Allergies/Adverse Reactions: Allergies NO KNOWN ALLERGY Allergy (Verified 07/14/18 13:04) Home Medications: Ambulatory Orders Atenolol [Tenormin] 50 mg PO DAILY 07/14/16 Cetirizine HCl 10 mg PO DAILY 07/14/16 Furosemide [Lasix] 40 mg PO DAILY 07/14/16 Gabapentin [Neurontin] 600 mg PO BID 07/14/16 Insulin Aspart [Novolog] See Protocol SC ACHS 07/14/16 Lisinopril & Hydrochlorothiazi [Lisinopril/Hctz 20-25 mg] 1 tab PO DAILY 07/14/16 Metformin HCl 500 mg PO DAILY 07/14/16 Potassium Chloride Tab [K-Dur] 20 meq PO DAILY 07/14/16 Sertraline HCl [Zoloft] 100 mg PO DAILY 07/14/16 Warfarin Sodium [Coumadin] 3 mg PO DAILY 07/14/18 Warfarin Sodium [Coumadin] 5 mg PO DAILY 07/14/18 Misc Natural Products [Osteo Bi-Flex Triple Stre] 1 tab PO BID 07/15/18 Probiotic Product [Probiotic] 1 tab PO DAILY 07/15/18 Insulin Glargine [Lantus Solostar] 50 unit SC DAILY@0700 #0 07/16/18 Insulin Glargine [Lantus Solostar] 50 units SC BEDTIME #0 07/16/18 Sulfa/Trimeth 800/160 (Ds) Tab [Bactrim DS] 1 tablet PO BID #16 tab 07/16/18 Review of Systems - Review of Systems Constitutional: States: no symptoms reported EENTM: States: no symptoms reported Respiratory: States: no symptoms reported Cardiology: States: see HPI Gastrointestinal/Abdominal: States: no symptoms reported Genitourinary: States: no symptoms reported Musculoskeletal: States: no symptoms reported Skin: States: no symptoms reported Neurological: States: no symptoms reported All other Systems: Reviewed and Negative Past Medical History (General) - Patient Medical History Hx Seizures: No Hx Stroke: No Hx Asthma: No Hx of COPD: No Hx Cardiac Disorders: Yes - A-fib Hx Congestive Heart Failure: Yes Hx Pacemaker: No Hx Hypertension: Yes Hx Diabetes: Yes Hx Gastroesophageal Reflux: Yes Hx Cancer: Yes - uterine Hx MRSA: No Surgical History: appendectomy, other - gastrectomy-bleeding ulcer;hysterectomy- uterine cancer - Vaccination History Hx Tetanus, Diphtheria Vaccination: No Hx Influenza Vaccination: Yes Hx Pneumococcal Vaccination: Yes - Social History Hx Tobacco Use: Yes Hx Alcohol Use: No Hx Substance Use: No Hx Physical Abuse: No Hx Emotional Abuse: Yes Family Medical History - Family History Mother Living Status: Hx Cardiac Disease: Yes - mom Hx Family Diabetes: Yes Hx Family Cancer: Yes - melanoma-rectal:daughter Physical Exam - Physical Exam General Appearance: Alert, Anxious, No apparent distress Eye Exam: bilateral normal Ears, Nose, Throat: hearing grossly normal, normal ENT inspection, normal pharynx Neck: non-tender, full range of motion, supple, normal inspection Respiratory: lungs clear, normal breath sounds, no respiratory distress Cardiovascular/Chest: normal peripheral pulses, no JVD, no murmur, irregularly irregular Peripheral Pulses: radial,right: 2+, radial,left: 2+ Gastrointestinal/Abdominal: non tender, soft, no organomegaly, no pulsatile mass Back Exam: no CVA tenderness, no vertebral tenderness Extremity: no pedal edema, no calf tenderness Neurologic: alert, oriented x 3 Skin Exam: normal color, warm/dry Lymphatic: no adenopathy Progress - Progress Progress: 09/21/18 18:00 Vital Signs - 8 hr 09/21/18 09/21/18 09/21/18 12:07 13:07 14:07 Temperature 97.8 F Pulse Rate [ 110 H 106 H 125 H Apical] Respiratory 36 H 18 20 Rate Blood Pressure 161/110 139/83 125/94 [Right Arm] O2 Sat by Pulse 96 91 L 93 L Oximetry 09/21/18 09/21/18 15:09 16:09 Temperature Pulse Rate [ 98 H 106 H Apical] Respiratory 20 20 Rate Blood Pressure 99/65 143/77 [Right Arm] O2 Sat by Pulse 94 L 95 Oximetry - Results/Orders Results/Orders: Laboratory Tests 09/21/18 09/21/18 09/21/18 12:09 12:13 14:13 WBC 10.8 Cancelled RBC 5.16 Cancelled Hgb 16.7 H Cancelled Hct 48.7 H Cancelled MCV 94.4 Cancelled MCH 32.3 H Cancelled MCHC 34.3 Cancelled RDW 14.4 Cancelled Plt Count 284 Cancelled MPV 8.0 Cancelled Absolute Neuts (auto) 7.90 H Cancelled Absolute Lymphs (auto) 2.20 Cancelled Absolute Monos (auto) 0.60 Cancelled Absolute Eos (auto) 0.10 Cancelled Absolute Basos (auto) 0.10 Cancelled Neutrophils % 73.0 Cancelled Lymphocytes % 20.7 Cancelled Monocytes % 5.1 Cancelled Eosinophils % 0.6 L Cancelled Basophils % 0.6 Cancelled Differential Comment Cancelled RBC Morphology Cancelled PT 15.5 H Cancelled INR 1.56 H Cancelled PTT (SP) 32.2 H Cancelled Sodium 135 Cancelled Potassium 4.3 Cancelled Chloride 100 L Cancelled Carbon Dioxide 24 Cancelled Anion Gap 15.3 Cancelled BUN 15 Cancelled Creatinine 0.65 Cancelled BUN/Creatinine Ratio 23.1 H Cancelled Random Glucose 281 H D Cancelled Serum Osmolality 281.1 Cancelled Calcium 9.3 Cancelled Magnesium 1.8 Cancelled Total Bilirubin 0.9 Direct Bilirubin 0.1 Indirect Bilirubin 0.8 AST 24 ALT 18 Alkaline Phosphatase 115 Creatine Kinase 46 Cancelled CK-MB (CK-2) 2.4 Cancelled CK-MB (CK-2) % Not Reportable Cancelled Troponin I < 0.02 Cancelled < 0.02 B-Natriuretic Peptide 67.3 Cancelled Serum Total Protein 8.4 H Albumin 4.2 Urine Color Urine Appearance Urine pH Ur Specific Colony Urine Protein Urine Glucose (UA) Urine Ketones Urine Blood Urine Nitrite Urine Bilirubin Urine Urobilinogen Ur Leukocyte Esterase Urine RBC Urine WBC Ur Epithelial Cells Urine Bacteria 09/21/18 14:13 WBC RBC Hgb Hct MCV MCH MCHC RDW Plt Count MPV Absolute Neuts (auto) Absolute Lymphs (auto) Absolute Monos (auto) Absolute Eos (auto) Absolute Basos (auto) Neutrophils % Lymphocytes % Monocytes % Eosinophils % Basophils % Differential Comment RBC Morphology PT INR PTT (SP) Sodium Potassium Chloride Carbon Dioxide Anion Gap BUN Creatinine BUN/Creatinine Ratio Random Glucose Serum Osmolality Calcium Magnesium Total Bilirubin Direct Bilirubin Indirect Bilirubin AST ALT Alkaline Phosphatase Creatine Kinase CK-MB (CK-2) CK-MB (CK-2) % Troponin I B-Natriuretic Peptide Serum Total Protein Albumin Urine Color Yellow Urine Appearance Clear Urine pH 6.0 Ur Specific Colony 1.025 Urine Protein 100 H Urine Glucose (UA) Negative Urine Ketones Trace Urine Blood Trace-lysed H Urine Nitrite Negative Urine Bilirubin Negative Urine Urobilinogen 0.2 Ur Leukocyte Esterase Negative Urine RBC 0-1 Urine WBC 5-10 H Ur Epithelial Cells 0 Urine Bacteria 4+ H discuss test result with patient needing further serial cardiac enzyme for hospital obs and agreed with plan. - EKG/XRAY/CT EKG: Atrial, Fibrillation, no ST T wave changes Comments: HR-101 XRAY: chest - no active pulmonary disease Departure - Departure Clinical Impression: Atrial fibrillation with rapid ventricular response, Diabetes 1.5, managed as type 1 Chest pain Qualifiers: Chest pain type: unspecified Qualified Code(s): R07.9 - Chest pain, unspecified Time of Disposition: 18:05 Disposition: Admit Patient Condition: Fair Departure Forms: Patient Portal Self Enrollment Referrals: SHANON FINCH IV, LIGHTING DIRECTOR [Primary Care Provider] - 1-2 Weeks Home Medications: Ambulatory Orders Atenolol [Tenormin] 50 mg PO DAILY 07/14/16 Cetirizine HCl 10 mg PO DAILY 07/14/16 Furosemide [Lasix] 40 mg PO DAILY 07/14/16 Gabapentin [Neurontin] 600 mg PO BID 07/14/16 Insulin Aspart [Novolog] See Protocol SC ACHS 07/14/16 Lisinopril & Hydrochlorothiazi [Lisinopril/Hctz 20-25 mg] 1 tab PO DAILY 07/14/16 Metformin HCl 500 mg PO DAILY 07/14/16 Potassium Chloride Tab [K-Dur] 20 meq PO DAILY 07/14/16 Sertraline HCl [Zoloft] 100 mg PO DAILY 07/14/16 Warfarin Sodium [Coumadin] 3 mg PO DAILY 07/14/18 Warfarin Sodium [Coumadin] 5 mg PO DAILY 07/14/18 Misc Natural Products [Osteo Bi-Flex Triple Stre] 1 tab PO BID 07/15/18 Probiotic Product [Probiotic] 1 tab PO DAILY 07/15/18 Insulin Glargine [Lantus Solostar] 50 unit SC DAILY@0700 #0 07/16/18 Insulin Glargine [Lantus Solostar] 50 units SC BEDTIME #0 07/16/18 Sulfa/Trimeth 800/160 (Ds) Tab [Bactrim DS] 1 tablet PO BID #16 tab 07/16/18 Decision To Admit - Decistion To Admit Decision to Admit Reason: Admit from ER Decision to Admit Date: 09/21/18 - D/W William Panchal-ANP/Hospitalist for admit Decision to Admit Time: 18:03
--- NOTE | 2018-09-21 13:32 | RAD ---
EXAM: Chest,1 View CLINICAL INDICATION: Chest pain COMPARISON: 07/14/2018 FINDINGS: A single view of the chest was obtained. The heart size is normal. The pulmonary vascularity is unremarkable. The lungs are clear. There is no consolidation, infiltrate, pleural effusion, or pneumothorax. IMPRESSION: No evidence of active pulmonary disease. Electronically signed by: Franklyn Mao MD 09/21/2018 1:30 PM LEAD SOFTWARE QA ENGINEER
[2018-09-21] MEDS ORDERED: LABETALOL INJ 5 MG/ML VIAL IV ONE (14:24)
[2018-09-21] MEDS ORDERED: diltiaZEM HCL TAB 30 MG TAB PO ONE (15:38)
--- NOTE | 2018-09-21 18:25 | HP ---
SUPERVISING PHYSICIAN: Joseph Dodge M.D. CHIEF COMPLAINT: Chest pain. HISTORY OF PRESENT ILLNESS: Ms. Colin is a 78 year-old female with a history of atrial fibrillation and congestive heart failure. Today while in [facility] she started to experience some chest tightening and became diaphoretic with some shortness of breath, but no radiation. About 1 to 2 hours after symptom onset she presented to the E. [facility] for evaluation. She notes that she apparently had a thallium stress test attempted in the past but that was stopped due to severe headache after administration of medication by the flight attendant. Her flight attendant apparently is in [place] but at this point she is not sure who that is. She does see Blair Ybarra for primary care. Laboratory studies: Her cardiac enzymes initially in the E. R. times 2 sets showed a troponin of less than 0.02. CBC showed a white count of 10,800, hemoglobin 16.7, hematocrit 40.7, platelet count 284,000. Differential showed to be without a left shift. Coagulation studies showed an INR of 1.56, PTT of 32.2 with a PT of 15.5. Chemistries showed normal electrolytes with BUN 15, creatinine 0.65, magnesium 1.8, calcium 9.3. Liver functions were all within normal limits. Urinalysis showed 100 protein with 4+ bacteria. She did take a Nitro prior to arrival to the E. R. as well as 1 right just before she came to the E. R[facility] and was noted that she had received after additional morphine and Nitro she was pain free. Initial EKG showed that she was in atrial fibrillation with a rapid ventricular response in the 110s to 120s. She was given 240 mg of Cardizem. She was also hypertensive with initial blood pressure of 161/110. She was given aspirin and morphine and some Zofran for nausea. She denied any recent illness or any ill contacts. The patient notes that she did not take any of her medications this morning before [facility] which includes a beta guille for rate control. Given that she has a significant history and the nature of her pain, and the fact that she is diabetic, Dr. Dooley requested the patient be placed in observation for further cardiac telemetry monitoring and further rule out of an acute myocardial event. She was placed in observation in stable condition. PAST MEDICAL HISTORY: 1. Congestive heart failure first diagnosed in 2007 with last echocardiogram at that time showing an ejection fraction of 65% and stage 2 diastolic dysfunction. 2. Hypertension with stage 2 diastolic dysfunction. 3. Osteoarthritis. 4. Diabetes mellitus type 2 on both oral and insulin therapy. 5. Chronic atrial fibrillation on chronic Coumadin therapy. 6. Seasonal allergies. 7. Gastroesophageal reflux disease. 8. History of depression and anxiety. PAST SURGICAL HISTORY: 1. Appendectomy. 2. Cholecystectomy. 3. Hysterectomy with bilateral salpingo-oophorectomy at age 39. 4. Partial gastrectomy. 5. Right third toe amputation. 6. Tonsillectomy and adenoidectomy as a child. HOME MEDICATIONS: 1. Lisinopril/Hydrochlorothiazide 20-25 mg 1 daily. 2. Tenormin 50 mg daily. 3. Cetirizine 10 mg daily. 4. NovoLog sliding scale a.c. and h.s. 5. Neurontin 600 mg b.i.d. 6. Lasix 40 mg daily. 7. Lantus Solostar 60 units daily. 8. Lantus Solostar 60 units at bedtime. 9. Osteo Bi-Flex 1 b.i.d. 10. Metformin 500 mg daily. 11. Zoloft 100 mg daily. 12. Probiotic 1 tablet daily. 13. Potassium chloride 20 mEq daily. 14. Coumadin 5 mg daily. 15. Warfarin 3 mg daily. ALLERGIES: NO KNOWN DRUG ALLERGIES. FAMILY HISTORY: Positive for colon cancer and ulcers. SOCIAL HISTORY: The patient is a retired [employer] employee. She lives with her ex- and her daughter, and has moved to [place] in the last 3 months from [place]. She does have a history of smoking but quit in 1989 and before that was smoking 2 to 3 packs per day, and had well over 25 years. She drinks alcohol rarely and denies any illicit drug use. REVIEW OF SYSTEMS: CONSTITUTIONAL: Denies any general fatigue, fevers, weight loss, chills. HEENT: Negative for ear aches, sore throat, nasal congestion. Positive for seasonal allergies. RESPIRATORY: Negative for wheezing, coughing, shortness of breath. CARDIOVASCULAR: As noted in History of Present Illness, chest pains palpitations with some tachycardia. GASTROINTESTINAL: Negative for any nausea, vomiting, diarrhea or constipation or abdominal pains. GENITOURINARY: Negative for any hematuria, dysuria or polyuria. MUSCULOSKELETAL: Negative for arthralgias, myalgias. SKIN: Negative for any lesions or rashes. NEUROLOGIC: Negative for headaches, dizziness, sore throat, seizures, ataxia. PHYSICAL EXAMINATION: VITAL SIGNS: Temperature 97.8 on admission with pulse 110, blood pressure 161/110 show 36 respirations and obviously short of breath on 96% room air. After treatment with Nitro and morphine blood pressure was 139/83 with respirations 18, satting 91%. Prior to Cardizem heart rate did go up to 125, after Cardizem initiation 240 mg heart rate was 98, blood pressure 99/65. Admission weight 121.4 kg. GENERAL: The patient appears to be well nourished and well hydrated, moderately obese. She is tearful but in no acute obvious distress. She is also obviously anxious. HEENT: Tympanic membranes are clear bilaterally. Oropharynx is pink and moist without any lesions. NECK: Supple, non-tender with full range of motion. No jugular venous distention. CHEST: Lungs were clear to auscultation without any rhonchi, wheezing or rales. CARDIOVASCULAR: Irregular rate and rhythm with no appreciable murmurs, gallops, or rubs, with the rate showing to be in the 90s on quality assurance monitor body. ABDOMEN: Obese but soft, non-tender. Positive bowel sounds. EXTREMITIES: Without any clubbing, cyanosis or edema. NEUROLOGIC: She is alert and oriented times three. Cranial nerves II-XII are grossly intact. SKIN: Warm, pink and dry. LABORATORY: CBC showed white count 10,800 with hemoglobin 16.7, hematocrit 48.7, platelet count 294,000. Differential showed to be without a left shift. Coagulation studies showed an INR of 1.56 with PT of 15.5, PTT of 32.2. Chemistries showed normal electrolytes with BUN 15, creatinine 0.65. Liver enzymes were all within normal limits. Magnesium is normal at 1.8, calcium 9.3. Initial 2 sets of troponins were less than 0.02 as well as CPK. Urinalysis showed 100 protein, trace lysed blood with microscopic revealing 5 to 10 WBCs and 4+ bacteria. No epithelial cells. MICROBIOLOGY: Urine culture is pending. RADIOLOGY: Chest x-ray in the E. R. for single view chest showed no evidence of active pulmonary disease. ASSESSMENT: 1. Chest pain requiring further telemetry and workup to further rule out any acute myocardial event, likely is stress related due to rapid ventricular response in regards to her atrial fibrillation. 2. Chronic atrial fibrillation with rapid ventricular response requiring initiation of Cardizem showing good response to therapy, probably resulting in her onset of chest pains as noted in #1. 3. Urinary tract infection with cultures pending. 4. History of congestive heart failure with a grade 2 diastolic dysfunction with last echocardiogram showing an ejection fraction of 65%. 5. Chronic Coumadin therapy. 6. Diabetes mellitus type 2 on oral and insulin therapy. 7. Hypertension with a grade 2 diastolic dysfunction with showing some mild hypertensive response on initial presentation to the Emergency Room. 8. History of anxiety and depression likely contributing to some of her symptoms in #1. PLAN: The patient is going to be placed in observation tonight on cardiac telemetry. Will continue to follow her cardiac enzymes every 6 hours and EKGs. She was given Cardizem 240 mg in the E. R. Will resume her home medications including her Tenormin tonight. Will repeat labs in the morning as well as EKG. Anticipate her length of stay to be 1 to 2 days. Once stable and able to transition to outpatient management she will need to followup with her primary care provider who is Blair Ybarra as well as be recommended that she followup with cardiology either in [place] or establish one within [place]. I will have to verify her Coumadin dosing as it was a little confusing, so will await records from Blair Ybarra's office to clarify that and once those records are obtained we can resume her home medications. We will recheck a PT and INR in the morning. Until the patient can transition to outpatient management will continue to monitor and treat as needed. #[id number] MTDD
[2018-09-21] MEDS ORDERED: DEXTROSE 50% 25 GM/50 ML SYG IV PRN (18:36)
[2018-09-21] MEDS ORDERED: MORPHINE SULFATE INJ 10 MG/ML VIAL IV PRN (18:36)
[2018-09-21] MEDS ORDERED: GLUCAGON INJ 1 MG VIAL SUBCU PRN (18:36)
[2018-09-21] MEDS ORDERED: SODIUM CHLORIDE 0.9% (FLUSH) 10 ML SYG IV PRN (18:36)
[2018-09-21] MEDS ORDERED: NITROGLYCERIN 0.4 MG 25 EA TAB SL PRN (18:36)
[2018-09-21] MEDS ORDERED: ACETAMINOPHEN 325 MG TAB PO PRN (18:36)
[2018-09-21] MEDS ORDERED: IV SET AND CAP CHANGE INJ INJ SCH (19:00)
[2018-09-21] MEDS ORDERED: INSULIN GLARGINE 60 UNIT SC SCH (21:00)
[2018-09-21] MEDS: NITROGLYCERIN 0.4 MG/HR PATCH TOP SCH (21:02)
[2018-09-21] MEDS: SODIUM CHLORIDE 0.9% (FLUSH) 10 ML SYG IV SCH (21:03)
[2018-09-21] MEDS ORDERED: cefTRIAXone SODIUM 1 GM in SODIUM CHL 0.9% 50ML MIN-BAG+ 50 ML IVPB SCH (22:30)
[2018-09-21] MEDS: INSULIN LISPRO 100 UNITS/ML PEN SUBCU SCH (23:12)
[2018-09-21] MEDS ORDERED: GABAPENTIN 300 MG CAP ONE (23:23)
[2018-09-21] MEDS ORDERED: cefTRIAXone SODIUM 1 GM VIAL ONE (23:23)
[2018-09-21] MEDS ORDERED: SODIUM CHL 0.9% 50ML MIN-BAG+ 50 ML IVPB ONE (23:24)
[2018-09-21] MEDS: NON-FORMULARY MEDICATION 1 EA MIS (Gabapentin [Neurontin] 600 MG) PO SCH (23:26)
[2018-09-21] MEDS ORDERED: INSULIN DETEMIR 100 UNITS/ML PEN SUBCU ONE ×2 (23:35→23:40)
[2018-09-22] MEDS: INSULIN LISPRO 100 UNITS/ML PEN SUBCU SCH ×2 (07:27→11:45)
[2018-09-22] MEDS ORDERED: POTASSIUM CHLORIDE 20 MEQ TAB PO SCH (09:00)
[2018-09-22] MEDS ORDERED: SERTRALINE HCL 50 MG TAB PO SCH (09:00)
[2018-09-22] MEDS ORDERED: CETIRIZINE HCL 10 MG TAB PO SCH (09:00)
[2018-09-22] MEDS ORDERED: ASPIRIN TABLET 325 MG TAB PO SCH (09:00)
[2018-09-22] MEDS ORDERED: NON-FORMULARY MEDICATION 1 EA MIS (Furosemide [Lasix] 40 MG) PO SCH (09:00)
[2018-09-22] MEDS ORDERED: metFORMIN HCL 500 MG TAB PO SCH (09:00)
[2018-09-22] MEDS ORDERED: NON-FORMULARY MEDICATION 1 EA MIS (Lisinopril & Hydrochlorothiazi [Lisinopril/Hctz 20-25 M PO SCH (09:00)
[2018-09-22] MEDS ORDERED: ATENOLOL 25 MG TAB PO SCH (09:00)
[2018-09-22] MEDS ORDERED: INSULIN DETEMIR 100 UNITS/ML PEN SUBCU SCH ×2 (09:00→21:00)
[2018-09-22] MEDS ORDERED: FUROSEMIDE 40 MG TAB ONE (09:28)
[2018-09-22] MEDS ORDERED: GABAPENTIN 300 MG CAP ONE (09:28)
[2018-09-22] MEDS ORDERED: LISINOPRIL 10 MG TAB ONE (09:31)
[2018-09-22] MEDS ORDERED: hydroCHLOROthiazide 25 MG TAB ONE (09:31)
[2018-09-22] MEDS: NITROGLYCERIN 0.4 MG/HR PATCH TOP SCH (09:36)
[2018-09-22] MEDS: SODIUM CHLORIDE 0.9% (FLUSH) 10 ML SYG IV SCH (09:48)
[2018-09-22] MEDS: NON-FORMULARY MEDICATION 1 EA MIS (Gabapentin [Neurontin] 600 MG) PO SCH (09:49)
[2018-09-22 13:21] VITALS: BP 111/65; TEMP 97.6; O2SAT 91
[2018-09-22] MEDS ORDERED: REMOVE OLD PATCH TOP SCH (21:00)
[2018-09-22] MEDS ORDERED: GABAPENTIN 300 MG CAP PO SCH (21:00)
[2018-09-23] MEDS ORDERED: FUROSEMIDE 40 MG TAB PO SCH (09:00)
[2018-09-23] MEDS ORDERED: hydroCHLOROthiazide 25 MG TAB PO SCH (09:00)
[2018-09-23] MEDS ORDERED: LISINOPRIL 10 MG TAB PO SCH (09:00)
--- NOTE | 2018-10-02 11:27 | DS ---
SUPERVISING PHYSICIAN: Juanito Bledsoe MD ADMISSION DIAGNOSIS: 1. Chest pain requiring further telemetry and workup to further rule out any acute myocardial event, likely is stress related due to rapid ventricular response in regards to her atrial fibrillation. 2. Chronic atrial fibrillation with rapid ventricular response requiring initiation of Cardizem showing good response to therapy, probably resulting in her onset of chest pains as noted in #1. 3. Urinary tract infection with cultures pending. 4. History of congestive heart failure with a grade 2 diastolic dysfunction with last echocardiogram showing an ejection fraction of 65%. 5. Chronic Coumadin therapy. 6. Diabetes mellitus type 2 on oral and insulin therapy. 7. Hypertension with a grade 2 diastolic dysfunction with showing some mild hypertensive response on initial presentation to the Emergency Room. 8. History of anxiety and depression likely contributing to some of her symptoms in #1. DISCHARGE DIAGNOSIS: 1. Chest pain with no signs of acute myocardial infarction, felt to be stress event due to rapid ventricular response of atrial fibrillation. After receiving control of ventricular rate with Cardizem, the patient was without any signs or symptoms of acute myocardial infarction. 2. Chronic atrial fibrillation with initial rapid ventricular response, responding to Cardizem, probably resulting in #1. 3. Urinary tract infection with final culture results show Escherichia coli that was sensitive to all but ampicillin. 4. History of congestive heart failure with a grade 2 diastolic dysfunction with last echocardiogram showing an ejection fraction of 65%. 5. Chronic Coumadin therapy. 6. Diabetes mellitus type 2 on oral and insulin therapy. 7. Hypertension with a grade 2 diastolic dysfunction with showing some mild hypertensive response on initial presentation to the Emergency Room. 8. History of anxiety and depression likely contributing to some of her symptoms in #1. REASON FOR ADMISSION: Ms. Colin is a 78 year-old female with a history of atrial fibrillation and congestive heart failure. Today while in [place] she started to experience some chest tightening and became diaphoretic with some shortness of breath, but no radiation. About 1 to 2 hours after symptom onset she presented to the E. R[facility] for evaluation. She notes that she apparently had a thallium stress test attempted in the past but that was stopped due to severe headache after administration of medication by the acid loader. Her acid loader apparently is in [place] but at this point she is not sure who that is. She does see Blair Ybarra for primary care. Laboratory studies: Her cardiac enzymes initially in the E. R. times 2 sets showed a troponin of less than 0.02. CBC showed a white count of 10,800, hemoglobin 16.7, hematocrit 40.7, platelet count 284,000. Differential showed to be without a left shift. Coagulation studies showed an INR of 1.56, PTT of 32.2 with a PT of 15.5. Chemistries showed normal electrolytes with BUN 15, creatinine 0.65, magnesium 1.8, calcium 9.3. Liver functions were all within normal limits. Urinalysis showed 100 protein with 4+ bacteria. She did take a Nitro prior to arrival to the E. R. as well as 1 right just before she came to the E. R[facility] and was noted that she had received after additional morphine and Nitro she was pain free. Initial EKG showed that she was in atrial fibrillation with a rapid ventricular response in the 110s to 120s. She was given 240 mg of Cardizem. She was also hypertensive with initial blood pressure of 161/110. She was given aspirin and morphine and some Zofran for nausea. She denied any recent illness or any ill contacts. The patient notes that she did not take any of her medications this morning before [facility] which includes a beta guille for rate control. Given that she has a significant history and the nature of her pain, and the fact that she is diabetic, Dr. Dooley requested the patient be placed in observation for further cardiac telemetry monitoring and further rule out of an acute myocardial event. She was placed in observation in stable condition. LABORATORY: CBC on admission showed white count 24429, hemoglobin 16.7, hematocrit 48.7, platelet count 294,000. Differential was without a left shift. Coagulation studies showed PT of 15.5, PTT of 32.2, INR 1.56. Chemistries at time of admission showed normal electrolytes with BUN 15, creatinine 0.65. Glucose elevated at 281. Liver enzymes were all within normal limits. Troponin x3 draws were all less than 0.02. BNP normal at 67. Triglycerides 162, all other cholesterol, LDL and HDL within normal limits. Urinalysis showed 100 protein, trace lysed blood with microscopic revealing 5 to 10 WBCs and 4+ bacteria. Urine drug screen negative as tested. MICROBIOLOGY: Urine culture showed E. coli sensitive to everything but ampicillin. RADIOLOGY: Chest x-ray prior to admission in the Emergency Room per radiologic interpretation showed showed no evidence of active pulmonary disease. EKGs showed atrial fibrillation with rapid ventricular rate initially on admission at 101. After treatment with Cardizem, she was showing atrial fibrillation with a rate of [address] elevation or T-wave changes noted to indicate ischemic changes or acute myocardial infarction. HOSPITAL COURSE: Ms. Colin was admitted as noted for chest pains and rapid ventricular response of atrial fibrillation. On admission, she was started on Cardizem and given labetalol as well as antibiotics to include Rocephin for her underlying urinary tract infection. Initially, she was given Cardizem 240 mg p.o. in the Emergency Room. She did have good control of her ventricular rate and was continued on treatment and showing to be stable on the morning of discharge. She was discharged to continue with outpatient management. PLAN: She was discharged on 09/22/18 to have close clinical followup with Blair Ybarra, Nurse Practitioner. She as told to resume her home medications as prior to hospitalization. Diet was diabetic diet as tolerated. Activity to increase as tolerated. She was already on warfarin prior to admission as well as beta guille which was continued at 50 mg daily. She was given warnings to return to the hospital should she have return of her symptoms. DISPOSITION: The patient was discharged home. CONDITION ON DISCHARGE: Stable and improved. #[id number] MTDD
== END 2018-09-22 14:36 | disposition home or self-care (01) ==
LOC: ER 12:07 → MS 18:23
PROVIDERS: ADMIT Nurse Practitioner Family; ATTEND Nurse Practitioner Family
DX: R07.89 Other chest pain (principal); N39.0 Urinary tract infection, site not specified; I11.0 Hypertensive heart disease with heart failure; I50.32 Chronic diastolic (congestive) heart failure; E11.9 Type 2 diabetes mellitus without complications; I48.2 Chronic atrial fibrillation; K21.9 Gastro-esophageal reflux disease without esophagitis; F32.9 Major depressive disorder, single episode, unspecified; F41.9 Anxiety disorder, unspecified; J30.2 Other seasonal allergic rhinitis; R51 Headache; Z79.4 Long term (current) use of insulin; Z79.01 Long term (current) use of anticoagulants; Z79.899 Other long term (current) drug therapy; Z87.891 Personal history of nicotine dependence; Z85.42 Personal history of malignant neoplasm of other parts of uterus; Z89.421 Acquired absence of other right toe(s); Z90.3 Acquired absence of stomach [part of]; Z90.49 Acquired absence of other specified parts of digestive tract; Z90.710 Acquired absence of both cervix and uterus; Z80.0 Family history of malignant neoplasm of digestive organs
CPT/HCPCS: 96374; 96375; 96372 ×2; J0696; J2270; J2405; J1815 ×2; J7050; 87086; 80307; 82948 ×3; 80061; 36415 ×3; 82550; 80048; 82553; 85025; 85730; 85610; 84484 ×4; 87077; 87186; 81001; 80076; 83880; 36416 ×2; 71045 ×2; 94760; 99285; 93005 ×2

== ENCOUNTER → 2018-12-10 | Outpatient (CLI) | payer OTHER ==
--- NOTE | 2018-12-10 17:28 | RAD ---
EXAM DESCRIPTION: Chest,2 Views CLINICAL HISTORY: J18.9 COMPARISON: Previous study September 21, 2018 TECHNIQUE: PA/lateral FINDINGS: There is no acute appearing cardiac or pulmonary abnormality. Heart size is large with normal pulmonary vascularity. No pleural effusion or pneumothorax. Lungs are clear with no consolidating infiltrate. Lateral view shows intact sternum and T-spine. IMPRESSION: Large heart without congestive failure. Electronically signed by: Corwin Kellogg MD 12/10/2018 5:24 PM CDT
== END ==
LOC: LAB.O 16:06
PROVIDERS: ATTEND Nurse Practitioner Family
DX: I42.0 Dilated cardiomyopathy (principal); J18.9 Pneumonia, unspecified organism; R06.02 Shortness of breath

== ENCOUNTER 2020-05-27 11:20 | Observation (INO) | payer MEDICARE, OTHER ==
--- NOTE | 2020-05-27 11:22 | ED.PDOC ---
History of Present Illness - General Time Seen by Provider: 05/27/20 11:21 Source: patient, RN notes reviewed, Vital Signs reviewed Exam Limitations: no limitations - History of Present Illness Initial Comments: 80 yo F with a pmh of CHF, DM comes in with left CP radiating to her left shoulder. states she has had this before and was admitted to the hospital. no hx of WI, no stents. Feels nauseated. no sob, dizziness or change in vision. Timing/Duration: 4-6 hours Severity/Quality: moderate Chest Pain Radiation: arms Activities at Onset: none Allergies/Adverse Reactions: Allergies NO KNOWN ALLERGY Allergy (Verified 05/27/20 11:43) Home Medications: Ambulatory Orders Atenolol [Tenormin] 50 mg PO DAILY 07/14/16 Furosemide [Lasix] 40 mg PO DAILY 07/14/16 Gabapentin [Neurontin] 600 mg PO BID 07/14/16 Insulin Aspart [Novolog] See Protocol SC ACHS 07/14/16 Lisinopril & Hydrochlorothiazi [Lisinopril/Hctz 20-25 mg] 1 tab PO DAILY 07/14/16 Metformin HCl [Metformin Hydrochloride] 500 mg PO DAILY 07/14/16 Misc Natural Products [Osteo Bi-Flex Triple Stre] 1 tab PO BID 07/15/18 Buspirone HCl 15 mg PO BID 05/27/20 Insulin Glargine 100U/ml [Lantus] 40 unit SUBCU BID 05/27/20 Multiple Vitamins W/ Minerals [Eye Vitamins] 1 cap PO DAILY 05/27/20 Potassium Chloride [Potassium Chloride Cr] 10 meq PO DAILY 05/27/20 Warfarin Sodium 4 mg PO WKLY 05/27/20 Warfarin Sodium [Coumadin] 8 mg PO WKLY 05/27/20 diphenhydrAMINE HCL [Benadryl] 25 mg PO BEDTIME 05/27/20 Review of Systems - Review of Systems Constitutional: Denies: chills, diaphoresis, fever EENTM: Denies: blurred vision, double vision Respiratory: Denies: cough, orthopnea, short of breath Cardiology: States: chest pain. Denies: palpitations, syncope Gastrointestinal/Abdominal: States: nausea. Denies: abdominal pain, diarrhea, vomiting Genitourinary: Denies: dysuria, frequency Musculoskeletal: Denies: back pain, joint pain, muscle pain Skin: Denies: rash Neurological: Denies: headache, numbness, paresthesia, tingling, tremors Endocrine: Denies: unexplained weight gain, unexplained weight loss Hematologic/Lymphatic: Denies: easy bleeding, easy bruising Past Medical History (General) - Patient Medical History Hx Seizures: No Hx Stroke: No Hx Asthma: No Hx of COPD: No Hx Cardiac Disorders: Yes - A-fib Hx Congestive Heart Failure: Yes Hx Pacemaker: No Hx Hypertension: Yes Hx Diabetes: Yes Hx Gastroesophageal Reflux: Yes Hx Cancer: Yes - uterine Hx MRSA: No - Vaccination History Hx Tetanus, Diphtheria Vaccination: No Hx Influenza Vaccination: Yes Hx Pneumococcal Vaccination: Yes - Social History Hx Tobacco Use: Yes Hx Alcohol Use: No Hx Substance Use: No Hx Physical Abuse: No Hx Emotional Abuse: No Family Medical History - Family History Mother Living Status: Hx Cardiac Disease: Yes - mom Hx Family Diabetes: Yes Hx Family Cancer: Yes - melanoma-rectal:daughter Physical Exam - Physical Exam General Appearance: Alert, Comfortable, No apparent distress, Well Developed, Well Groomed, Well Hydrated, Well Nourished Eyes, Ears, Nose, Throat Exam: PERRL/EOMI, normal ENT inspection Neck: non-tender, full range of motion, supple, normal inspection Respiratory: chest non-tender, lungs clear, normal breath sounds, no respiratory distress, no accessory muscle use Cardiovascular/Chest: normal peripheral pulses, no gallop, no JVD, no murmur, irregularly irregular Peripheral Pulses: radial,right: 2+, radial,left: 2+, dorsalis pedis,right: 2+, dorsalis pedis,left: 2+ Gastrointestinal/Abdominal: normal bowel sounds, non tender, soft, no organomegaly Rectal Exam: deferred Extremity: normal range of motion, non-tender, normal inspection, no pedal edema, no calf tenderness, normal capillary refill Neurologic: reexaminer II-XII nml as tested, no motor/sensory deficits, alert, normal mood/affect, oriented x 3 Skin Exam: normal color, warm/dry Progress - Progress Progress: 05/27/20 12:53 partai ddx: CAD, CHF, pneumonia, anxiety, chest wall pain. Patient given 324 mg aspirin and 0.4 mg nitro x 2. Chest/arm pain resolved. She is resting comfortably. Tearful states her brother just a few days ago. Patient also notes this morning glucose was 252, so she took 16 units of novolog as per her ssi instructions. Will monitor closely to make sure she doesn't become hypoglycemic. - Results/Orders Results/Orders: 05/27/20 11:29 URINALYSIS Stat 05/27/20 12:15 EKG STAT 05/27/20 12:39 Admission Order Routine Echocardiography complete w Routine 05/27/20 12:41 Daily Weight (Standing Scale) DAILY Notify:Physician PRN Acetaminophen [Tylenol] 325 - 650 mg PO Q4H PRN Morphine Sulfate Inj 1 - 5 mg IV Q30MIN PRN Nitroglycerin 0.4 mg Tab [Nitrostat] 1 ea SL Q5MIN PRN Sodium Chloride 0.9% (Flush) [Saline Flush Syringe] 3 ml IV PRN PRN Sodium Chloride 0.9% (Flush) [Saline Flush Syringe] 3 ml IV PRN PRN Oxygen Routine 05/27/20 12:43 Pulse Oximetry Assessment DAILY 05/27/20 12:47 Telemetry Q4H 05/27/20 12:48 Dextrose 50% 25Gm/50Ml Syr [D50 (25gm Syringe)] 25 gm IV PRN PRN Glucagon Inj See Protocol SUBCU PRN PRN 05/27/20 13:00 IV Set and Cap Change 1 ea INJ Q72H Nitroglycerin Patch 0.4 mg/Hr [Nitro-Dur PATCH 0.4 mg/hour] 1 ea TOP DAILY 05/27/20 16:30 GLUCOSE, FINGER STICK ACHS TROPONIN-I Stat Cardiac Diet Insulin Lispro [HumaLOG] See Protocol SUBCU ACHS 05/27/20 21:00 GLUCOSE, FINGER STICK ACHS Buspirone HCl [Buspirone HCl] 15 mg PO BID Gabapentin [Neurontin] 600 mg PO BID Insulin Glargine 100U/ml [Lantus] 40 unit SUBCU BID Misc Natural Products [Osteo Bi-Flex Triple Stre] 1 tab PO BID Sodium Chloride 0.9% (Flush) [Saline Flush Syringe] 3 ml IV BID diphenhydrAMINE HCL [Benadryl] 25 mg PO BEDTIME 05/28/20 05:00 LIPID PANEL Routine 05/28/20 06:30 Pantoprazole Tablet [Protonix] 40 mg PO DAILY@0630 05/28/20 09:00 Atenolol [Tenormin] 50 mg PO DAILY Furosemide [Lasix] 40 mg PO DAILY Lisinopril & Hydrochlorothiazi [Lisinopril/Hctz 20-25 mg] 1 tab PO DAILY Multiple Vitamins W/ Minerals [Eye Vitamins] 1 cap PO DAILY Potassium Chloride Tab [Micro-K] 10 meq PO DAILY metFORMIN HCL [Glucophage] 500 mg PO DAILY Pulse Ox Daily 06/03/20 09:00 Warfarin Sodium [Coumadin] 4 mg PO WKLY Warfarin Sodium [Coumadin] 8 mg PO WKLY Laboratory Results WBC 11.1 K/mm3 (4.8-10.8) H 05/27/20 11:35 RBC 5.40 M/mm3 (4.20-5.40) 05/27/20 11:35 Hgb 16.7 gm/dL (12.0-16.0) H 05/27/20 11:35 Hct 48.5 % (36.0-47.0) H 05/27/20 11:35 MCV 89.7 fl (81.0-99.0) 05/27/20 11:35 MCH 30.9 pg (27.0-31.0) 05/27/20 11:35 MCHC 34.5 g/dL (33.0-37.0) 05/27/20 11:35 RDW 14.3 % (11.5-14.5) 05/27/20 11:35 Plt Count 276 K/mm3 (130-400) 05/27/20 11:35 MPV 8.3 fl (7.40-10.4) 05/27/20 11:35 Absolute Neuts (auto) 7.70 K/uL (1.8-6.8) H 05/27/20 11:35 Absolute Lymphs (auto) 2.50 K/uL (1.0-3.4) 05/27/20 11:35 Absolute Monos (auto) 0.60 K/uL (0.2-0.8) 05/27/20 11:35 Absolute Eos (auto) 0.20 K/uL (0.0-0.4) 05/27/20 11:35 Absolute Basos (auto) 0.00 K/uL (0.0-0.1) 05/27/20 11:35 Neutrophils % 69.7 % (42.0-78.0) 05/27/20 11:35 Lymphocytes % 22.7 % (20.0-50.0) 05/27/20 11:35 Monocytes % 5.8 % (2.0-9.0) 05/27/20 11:35 Eosinophils % 1.4 % (1.0-5.0) 05/27/20 11:35 Basophils % 0.4 % (0.0-2.0) 05/27/20 11:35 PT 20.0 SECONDS (9.0-10.9) H 05/27/20 11:35 INR 2.02 (0.9-1.15) H 05/27/20 11:35 PTT (SP) 36.2 SECONDS (21.8-31.6) H 05/27/20 11:35 Sodium 137 mmol/L (135-145) 05/27/20 11:35 Potassium 3.9 mmol/L (3.6-5.0) 05/27/20 11:35 Chloride 100 mmol/L (101-111) L 05/27/20 11:35 Carbon Dioxide 27 mmol/L (21-31) 05/27/20 11:35 Anion Gap 13.9 (12-18) 05/27/20 11:35 BUN 15 mg/dL (7-18) 05/27/20 11:35 Creatinine 0.58 mg/dL (0.6-1.3) L 05/27/20 11:35 BUN/Creatinine Ratio 25.9 (10-20) H 05/27/20 11:35 Random Glucose 150 mg/dL (70-105) H 05/27/20 11:35 Serum Osmolality 277.5 mOsm/L (275-295) 05/27/20 11:35 Calcium 9.0 mg/dL (8.4-10.2) 05/27/20 11:35 Magnesium 1.8 mg/dL (1.8-2.5) 05/27/20 11:35 Total Bilirubin 0.7 mg/dL (0.2-1.0) 05/27/20 11:35 AST 15 IU/L (10-42) 05/27/20 11:35 ALT 13 IU/L (10-60) 05/27/20 11:35 Alkaline Phosphatase 122 IU/L (42-121) H 05/27/20 11:35 Troponin I < 0.02 ng/mL (0.01-0.05) 05/27/20 11:35 B-Natriuretic Peptide 139.0 pg/ml (0-100) H 05/27/20 11:35 Serum Total Protein 8.2 gm/dL (6.4-8.2) 05/27/20 11:35 Albumin 4.0 g/dl (3.2-5.5) 05/27/20 11:35 Globulin 4.2 gm/dL (2.3-3.5) H 05/27/20 11:35 Albumin/Globulin Ratio 1.0 (1.1-1.9) L 05/27/20 11:35 Serum Ketones Negative 05/27/20 11:35 The data reviewed when caring for this patient included: nurse notes, prior records, etc. The history and assessments from nurses notes were reviewed and considered, and the patient's home medication list was also reviewed and considered. My assessment and the results of testing completed here in the ED were discussed with the patient/family. All questions were answered, and they express understanding of my assessment and the plan. patient was admitted to the floor in stable condition. Courtney Manzo DO #[id number] - EKG/XRAY/CT EKG: Atrial, Fibrillation Comments: LAD, no evidence of acute ischemia. XRAY: chest - cardiomeagly, pulmonary congestion, small pleural effusion. - Consult/PCP Time Called: 12:15 Consult/PCP: Zay Departure - Departure Clinical Impression: Diabetes 1.5, managed as type 1 Congestive heart failure Qualifiers: Heart failure type: unspecified Heart failure chronicity: chronic Qualified Code(s): I50.9 - Heart failure, unspecified Chest pain Qualifiers: Chest pain type: other chest pain Qualified Code(s): R07.89 - Other chest pain Atrial fibrillation Qualifiers: Atrial fibrillation type: unspecified Qualified Code(s): I48.91 - Unspecified atrial fibrillation Time of Disposition: 12:56 Disposition: Admit Patient Home Medications: Ambulatory Orders Atenolol [Tenormin] 50 mg PO DAILY 07/14/16 Furosemide [Lasix] 40 mg PO DAILY 07/14/16 Gabapentin [Neurontin] 600 mg PO BID 07/14/16 Insulin Aspart [Novolog] See Protocol SC ACHS 07/14/16 Lisinopril & Hydrochlorothiazi [Lisinopril/Hctz 20-25 mg] 1 tab PO DAILY 07/14/16 Metformin HCl [Metformin Hydrochloride] 500 mg PO DAILY 07/14/16 Misc Natural Products [Osteo Bi-Flex Triple Stre] 1 tab PO BID 07/15/18 Buspirone HCl 15 mg PO BID 05/27/20 Insulin Glargine 100U/ml [Lantus] 40 unit SUBCU BID 05/27/20 Multiple Vitamins W/ Minerals [Eye Vitamins] 1 cap PO DAILY 05/27/20 Potassium Chloride [Potassium Chloride Cr] 10 meq PO DAILY 05/27/20 Warfarin Sodium 4 mg PO WKLY 05/27/20 Warfarin Sodium [Coumadin] 8 mg PO WKLY 05/27/20 diphenhydrAMINE HCL [Benadryl] 25 mg PO BEDTIME 05/27/20 Decision To Admit - Decistion To Admit Decision to Admit Reason: Medical Nature Decision to Admit Date: 05/27/20 Decision to Admit Time: 12:15
[2020-05-27] MEDS ORDERED: NITROGLYCERIN 0.4 MG 25 EA TAB SL ONE ×2 (11:29→12:20)
[2020-05-27] MEDS ORDERED: ASPIRIN (CHEWABLE) 81 MG TAB PO ONE (11:29)
--- NOTE | 2020-05-27 12:06 | RAD ---
EXAM DESCRIPTION: Chest,1 View CLINICAL HISTORY: chest pain COMPARISON: Chest radiograph dated December 10, 2018 TECHNIQUE: One view radiograph of the chest FINDINGS: Calcific atherosclerosis of the aortic arch. Cardiac silhouette shows cardiomegaly with central pulmonary vascular congestion. Subtle alveolar opacities in the bilateral lower lung zones most likely represent pulmonary edema. Costophrenic angles are sharp. No pneumothorax. No acute osseous abnormality. IMPRESSION: 1. Cardiomegaly and central pulmonary vascular congestion, compatible with congestive heart failure. 2. Subtle alveolar opacities bilateral lower lung zones most likely represent pulmonary edema. Underlying infiltrate cannot be entirely excluded. Electronically signed by: Chino Thomas MD 05/27/2020 12:03 PM CDT
[2020-05-27] MEDS ORDERED: MORPHINE SULFATE INJ 10 MG/ML VIAL IV PRN (12:41)
[2020-05-27] MEDS ORDERED: SODIUM CHLORIDE 0.9% (FLUSH) 10 ML SYG IV PRN ×2 (12:41)
[2020-05-27] MEDS ORDERED: NITROGLYCERIN 0.4 MG 25 EA TAB SL PRN (12:41)
[2020-05-27] MEDS ORDERED: ACETAMINOPHEN 325 MG TAB PO PRN (12:41)
[2020-05-27] MEDS ORDERED: GLUCAGON INJ 1 MG VIAL SUBCU PRN (12:48)
[2020-05-27] MEDS ORDERED: DEXTROSE 50% 25 GM/50 ML SYG IV PRN (12:48)
[2020-05-27] MEDS ORDERED: IV SET AND CAP CHANGE INJ INJ SCH (13:00)
[2020-05-27] MEDS ORDERED: NITROGLYCERIN 0.4 MG/HR PATCH TOP SCH (13:00)
--- NOTE | 2020-05-27 13:01 | HP ---
SUPERVISING PHYSICIAN: Bryan Cox MD CHIEF COMPLAINT: Chest pain. HISTORY OF PRESENT ILLNESS: Ms. Colin is a 80-year-old female patient with a significant history of congestive heart failure, diabetes that presented to the Emergency Department complaining of left chest pain that radiating up to her left shoulder. She endorses this pain started after she got up from sleep. She has no past history of previous myocardial infarction or stents. She does feel a little nauseated, but denies any shortness of breath, dizziness or vision changes. Of note is this week, her brother and his is tomorrow. She is quite anxious about that. She does not feel that the pain has been reproducible, however, on exam, the arm pain seems to be reproducible when she is actively reaching across her chest wall. Her chest pain was rated at 4/10 and resolved with one nitro in the ER. Her initial workup in the ER did show troponin negative with initial 12-lead EKG showing atrial fibrillation with controlled ventricular rate. There was no obvious evidence of acute ischemia on the initial EKG and her chest x-ray showed some cardiomegaly with pulmonary congestion and small pleural effusion. Laboratory studies showed she had a slightly elevated BNP at 139. Based on the patient's symptomatology, advanced age and past medical history, the ER physician, Dr. Manzo, requested the patient be placed in observation overnight for continued extended cardiac workup and rule out acute coronary syndrome. The patient was placed in observation in stable condition. PAST MEDICAL HISTORY: 1. Congestive heart failure diagnosed in 2007 with last echocardiogram per record reviewed showing an ejection fraction of 65% with stage 2 diastolic dysfunction. 2. Hypertension with stage 2 diastolic dysfunction by echocardiogram. 3. Osteoarthritis. 4. Diabetes mellitus, type, 2, on both oral and insulin therapy. 5. Chronic atrial fibrillation on chronic Coumadin therapy. 6. Seasonal allergies. 7. Gastroesophageal reflux disease. 8. History of depression and anxiety. PAST SURGICAL HISTORY: 1. Appendectomy. 2. Cholecystectomy. 3. Hysterectomy with bilateral salpingo-oophorectomy age 39. 4. Partial gastrectomy. 5. Right third toe amputation. 6. Tonsillectomy and adenoidectomy as a child. HOME MEDICATIONS: 1. Benadryl 25 mg at bedtime. 2. Coumadin 8 mg daily. 3. Zoloft 100 mg daily. 4. Potassium chloride 20 mEq daily. 5. Multivitamin 1 daily. 6. Osteo Bi-Flex 1 tablet b.i.d. 7. Metformin 500 mg at bedtime. 8. Lisinopril/hydrochlorothiazide 20-25 mg daily. 9. Lantus insulin 40 units b.i.d. 10. Sliding scale insulin. 11. Neurontin 600 mg b.i.d. 12. Lasix 40 mg daily. 13. Buspirone 15 mg b.i.d. 14. Tenormin 50 mg daily. 15. Tylenol Arthritis 650 mg b.i.d. ALLERGIES: NO KNOWN DRUG ALLERGIES. FAMILY HISTORY: Positive for colon cancer, ulcers. SOCIAL HISTORY: The patient is a retired adult [employer] employee. She lives with her ex- and daughter. They just recently moved to [place] from [place] in the last several years. She does have a history of smoking, but quit in 1989 and before that, she smoked 2 packs per day for well over 25 years. She drinks alcohol very rarely and denies illicit drug use. REVIEW OF SYSTEMS: CONSTITUTIONAL: Negative for any fevers, chills or diaphoresis. HEENT: Negative for headache, sore throats, earaches, nasal congestion, vision changes. RESPIRATORY: Negative for coughing, wheezing, shortness of breath. CARDIOVASCULAR: Negative for palpitations or syncopal episodes, but as noted in history of present illness, left sided chest pain with some radiation into her left arm. GASTROINTESTINAL: Negative for nausea, vomiting, diarrhea, constipation or abdominal pain. GENITOURINARY: Negative for dysuria, hematuria, polyuria. MUSCULOSKELETAL: Negative for back pain, joint pain or muscle pain. SKIN: Negative for lesions, rashes, moles or unexplained changes. NEUROLOGIC: Negative for headaches, numbness, paresthesias, tingling, tremors, ataxia. HEMATOLOGIC: Negative for easy bruising, unexplained bleeding or transfusion reactions. PHYSICAL EXAMINATION: VITAL SIGNS: Temperature 98.5, pulse 80, blood pressure 146/72, respirations 20, saturation 93% on room air. GENERAL: The patient is resting comfortably, does not appear to be in any acute distress. She is a little bit anxious and tearful in relation to her brother's , but otherwise does not appear to be in any acute distress. HEENT: Tympanic membranes clear bilaterally. Oropharynx is pink, moist without any lesions. NECK: Supple, nontender with full range of motion. No jugular venous distention noted. CHEST: Nontender on palpation. Breath sounds are bilateral and equal. No obvious rales, rhonchi or wheezing. CARDIOVASCULAR: Slightly irregular rate and rhythm without any appreciable murmurs, gallops, or rubs. ABDOMEN: Soft, nontender. Positive bowel sounds. EXTREMITIES: There is no edema. NEUROLOGIC: Cranial nerves II-XII are grossly intact. Facial features are symmetrical. Extraocular movements are within normal limits. There is no nystagmus noted. The patient is alert and oriented times three. SKIN: Warm, pink and dry. LABORATORY: White count 11,100, hemoglobin 16.7, hematocrit 40.5, platelet count 276,000. Differential without a left shift. Coagulation studies showed INR of 2.02. Chemistry showed normal electrolytes with BUN 15, creatinine 0.58, blood sugar 150. Liver functions all within normal limits except for elevated alkaline phosphatase at 122. Troponin less than 0.02. BNP 139. Urinalysis pending. RADIOLOGY: Chest x-ray of single-view chest shows cardiomegaly with central pulmonary vascular congestion compatible with congestive heart failure, subtle alveolar opacities in bilateral lung zones most likely representing pulmonary edema. Underlying infiltrate cannot be entirely excluded. 12-lead EKG shows atrial fibrillation with controlled ventricular rate in the 80s. ASSESSMENT: 1. Chest pain requiring chest pain rule out. 2. History of congestive heart failure with last ejection fraction on echocardiogram from previous admission of 65% with stage 2 diastolic dysfunction. 3. Chronic hypertension with stage 2 diastolic dysfunction. 4. Diabetes mellitus, type 2, on both oral and insulin therapy. 5. Osteoarthritis. 6. Chronic atrial fibrillation on chronic Coumadin therapy, controlled ventricular rate. 7. Chronic depression and anxiety. 8. Seasonal allergies. 9. Gastroesophageal reflux disease. PLAN: The patient is placed in observation for further cardiac telemetry monitoring and extended cardiac rule out. I will repeat her cardiac enzymes q.6h. and in the morning. We will resume her home medications as soon as they are updated and verified. She is on DVT prophylaxis with Coumadin. She will be on insulin sliding scale per protocol. She is quite tearful on admission. I did discuss with her if she needs a little Xanax for symptoms of anxiety, we will certainly provide this as this may be contributing to some of her symptomatology. I went ahead and started her on a nitro patch 0.4 per hour. Until the patient can transition to outpatient management, we will continue to monitor and treat as needed. #[id number] MTDD
[2020-05-27] MEDS ORDERED: WARFARIN SODIUM 2 MG TAB PO SCH ×2 (13:15)
[2020-05-27] MEDS ORDERED: WARFARIN SODIUM 3 MG TAB ONE (13:31)
[2020-05-27] MEDS ORDERED: WARFARIN SODIUM 5 MG TAB ONE (13:31)
[2020-05-27] MEDS ORDERED: WARFARIN SODIUM 2 MG TAB ONE (13:39)
[2020-05-27] MEDS: WARFARIN SODIUM 2 MG TAB PO SCH (13:41)
[2020-05-27] MEDS: INSULIN LISPRO 100 UNITS/ML PEN SUBCU SCH ×2 (16:57→20:51)
[2020-05-27] MEDS: busPIRone HCL 5 MG TAB PO SCH (20:50)
[2020-05-27] MEDS: GABAPENTIN 300 MG CAP PO SCH (20:50)
[2020-05-27] MEDS: INSULIN DETEMIR 100 UNITS/ML PEN SUBCU SCH (20:57)
[2020-05-27] MEDS ORDERED: diphenhydrAMINE HCL 25 MG CAP PO SCH (21:00)
[2020-05-27] MEDS ORDERED: SODIUM CHLORIDE 0.9% (FLUSH) 10 ML SYG IV SCH (21:00)
[2020-05-27] MEDS ORDERED: NATURAL PRODUCTS PO SCH (21:00)
[2020-05-27] MEDS ORDERED: REMOVE OLD PATCH TOP SCH (21:00)
[2020-05-27] MEDS ORDERED: cefTRIAXone SODIUM 1 GM VIAL ONE (22:49)
[2020-05-27] MEDS ORDERED: SODIUM CHLORIDE 0.9% 50ML 50 ML ONE (22:49)
[2020-05-27] MEDS ORDERED: cefTRIAXone SODIUM 1 GM in SODIUM CHL 0.9% 50ML MIN-BAG+ 50 ML IVPB SCH (23:00)
[2020-05-28] MEDS ORDERED: PANTOPRAZOLE SODIUM TAB 40 MG PO ONE (05:08)
[2020-05-28 05:29] VITALS: BP 137/80; TEMP 97.8
[2020-05-28] MEDS ORDERED: PANTOPRAZOLE SODIUM TAB 40 MG PO SCH (06:30)
[2020-05-28] MEDS ORDERED: hydroCHLOROthiazide 25 MG TAB ONE (07:18)
[2020-05-28] MEDS ORDERED: FUROSEMIDE 40 MG TAB ONE (07:19)
[2020-05-28] MEDS ORDERED: metFORMIN HCL 500 MG TAB PO SCH (07:30)
[2020-05-28] MEDS: INSULIN LISPRO 100 UNITS/ML PEN SUBCU SCH (07:48)
[2020-05-28] MEDS: GABAPENTIN 300 MG CAP PO SCH (07:54)
[2020-05-28] MEDS: busPIRone HCL 5 MG TAB PO SCH (07:54)
[2020-05-28 08:32] VITALS: O2SAT 91
[2020-05-28] MEDS: INSULIN DETEMIR 100 UNITS/ML PEN SUBCU SCH (08:35)
[2020-05-28] MEDS: WARFARIN SODIUM 2 MG TAB PO SCH (08:50)
[2020-05-28] MEDS ORDERED: SERTRALINE HCL 100 MG PO SCH (09:00)
[2020-05-28] MEDS ORDERED: MULTIPLE VITAMINS W/ MINERALS 1 EA TAB PO SCH (09:00)
[2020-05-28] MEDS ORDERED: FUROSEMIDE 40 MG TAB PO SCH (09:00)
[2020-05-28] MEDS ORDERED: LISINOPRIL 10 MG TAB PO SCH (09:00)
[2020-05-28] MEDS ORDERED: ATENOLOL 25 MG TAB PO SCH (09:00)
[2020-05-28] MEDS ORDERED: POTASSIUM CHLORIDE 10 MEQ TAB PO SCH (09:00)
[2020-05-28] MEDS ORDERED: hydroCHLOROthiazide 25 MG TAB PO SCH (09:00)
[2020-05-28] MEDS ORDERED: ACETAMINOPHEN 650 MG PO SCH (09:00)
--- NOTE | 2020-05-28 20:57 | DS ---
SUPERVISING PHYSICIAN: Bryan Cox M.D. ADMISSION DIAGNOSIS: 1. Chest pain, extended rule out. 2. History of congestive heart failure with last ejection fraction on echocardiogram from previous admission of 65% with stage 2 diastolic dysfunction. 3. Chronic hypertension with stage 2 diastolic dysfunction. 4. Diabetes mellitus, type 2, on both oral and insulin therapy. 5. Osteoarthritis. 6. Chronic atrial fibrillation on chronic Coumadin therapy, controlled ventricular rate. 7. Chronic depression and anxiety. 8. Seasonal allergies. 9. Gastroesophageal reflux disease. DISCHARGE DIAGNOSIS: 1. Chest pain with no evidence of acute coronary syndrome. Chest pain possibly related to some underlying anxiety. 2. Urinary tract infection with cultures pending at time of discharge and the patient discharged on Ceftin. 3. History of congestive heart failure with last ejection fraction on echocardiogram from previous admission of 65% with stage 2 diastolic dysfunction. 4. Chronic hypertension with stage 2 diastolic dysfunction. 5. Diabetes mellitus, type 2, on both oral and insulin therapy. 6. Osteoarthritis. 7. Chronic atrial fibrillation on chronic Coumadin therapy, controlled ventricular rate. 8. Chronic depression and anxiety. 9. Seasonal allergies. 10. Gastroesophageal reflux disease. REASON FOR HOSPITALIZATION; Ms. Colin is a 80-year-old female patient with a significant history of congestive heart failure, diabetes that presented to the Emergency Department complaining of left chest pain that radiating up to her left shoulder. She endorses this pain started after she got up from sleep. She has no past history of previous myocardial infarction or stents. She does feel a little nauseated, but denies any shortness of breath, dizziness or vision changes. Of note is this week, her brother and his is tomorrow. She is quite anxious about that. She does not feel that the pain has been reproducible, however, on exam, the arm pain seems to be reproducible when she is actively reaching across her chest wall. Her chest pain was rated at 4/10 and resolved with one nitro in the ER. Her initial workup in the ER did show troponin negative with initial 12-lead EKG showing atrial fibrillation with controlled ventricular rate. There was no obvious evidence of acute ischemia on the initial EKG and her chest x-ray showed some cardiomegaly with pulmonary congestion and small pleural effusion. Laboratory studies showed she had a slightly elevated BNP at 139. Based on the patient's symptomatology, advanced age and past medical history, the ER physician, Dr. Manzo, requested the patient be placed in observation overnight for continued extended cardiac workup and rule out acute coronary syndrome. The patient was placed in observation in stable condition. LABORATORY STUDIES: White count on discharge was 9,300, otherwise CBC was within normal limits. Chemistries showed normal electrolytes with creatinine of 0.58. She had 3 sets of troponins all less than 0.02. Lipid panel showed within normal limits with triglyceride of 149, cholesterol 146, HDL of 33 and LDL of 81. Urinalysis did show positive nitrites with trace of blood, leukocyte esterase was small. Microscopic revealed 30 to 40 WBCs, 1 RBC with 1+ bacteria, 3 to 5 epithelials. RADIOLOGY: Chest x-ray in the Emergency Room per radiology interpretation showed cardiomegaly with central pulmonary vascular congestion compatible with congestive heart failure. There was note of subtle alveolar opacities in bilateral lung zones most likely representing pulmonary edema. Please see that report for details. EKG showed atrial fibrillation with controlled ventricular rate in the 80s. No signs of ST or T wave changes to indicate ischemia. No changes overnight on cardiac telemetry. HOSPITAL COURSE: Ms. Colin was placed in observation from the Emergency Room overnight for extended rule out of chest pains. The patient was quite emotional when she got to the floor. In discussion, her brother had just recently and was planned today on discharge. She had been quite emotional. She had woken up with the chest pain. The pain went away when she got to the Emergency Room with 1 Nitro. She was kept overnight on telemetry. I did put her on a low dose Nitro patch. She had no recurrence of any symptoms. No chest pains. No shortness of breath. No EKG changes. No ectopy. Labs remained within normal limits. No indication of acute coronary syndrome. On exam, the patient was found to be stable and felt clinically stable enough to continue ;w outpatient management. PHYSICAL EXAMINATION: VITAL SIGNS: At discharge showed temperature 97.8, pulse 78, blood pressure 137/80, respirations 20, satting 92% on room air. GENERAL: She was showing to be alert and in no acute distress. CHEST: Clear to auscultation. HEART: Slightly irregular rate and rhythm without appreciable murmurs, gallops, or rubs. ABDOMEN: Soft, non-tender. Positive bowel sounds. EXTREMITIES: Without any edema. NEUROLOGIC: She is alert and oriented times three. PLAN: Ms. Colin was discharged. She will need followup with [facility] Ybarra next week. Probably needs a stress test at some point. I did give her a prescription for Nitro which her Nitro at home was more than 3 months old, as well as treated her underlying urinary tract infection with Rocephin initially and followed this up with p.o. Ceftin. She is to resume a diabetic diet as tolerated. She is to increase her activities as tolerated. She was given instructions to return to the Emergency Room should she have any worsening or concerning symptoms. MEDICATIONS ON DISCHARGE: 1. Prescription for Ceftin 500 mg twice daily for 7 days. 2. Sublingual Nitro 0.4 mg every 5 minutes for chest pain, 1 bottle. No refills. All other medications prior to hospitalization were continued as is. Condition on discharge was stable and improving. DISPOSITION: The patient was discharged home. #[id number] MTDD
[2020-05-29] MEDS ORDERED: WARFARIN SODIUM 2 MG TAB PO SCH (12:00)
[2020-05-31] MEDS ORDERED: WARFARIN SODIUM 2 MG TAB PO SCH (12:00)
== END 2020-05-28 09:20 | disposition home or self-care (01) ==
LOC: ER 11:20 → MS 12:59
PROVIDERS: ADMIT Nurse Practitioner Family; ATTEND Nurse Practitioner Family
DX: R07.9 Chest pain, unspecified (principal); N39.0 Urinary tract infection, site not specified; I11.0 Hypertensive heart disease with heart failure; I50.32 Chronic diastolic (congestive) heart failure; E11.9 Type 2 diabetes mellitus without complications; M19.90 Unspecified osteoarthritis, unspecified site; I48.20 Chronic atrial fibrillation, unspecified; F32.9 Major depressive disorder, single episode, unspecified; F41.9 Anxiety disorder, unspecified; J30.2 Other seasonal allergic rhinitis; K21.9 Gastro-esophageal reflux disease without esophagitis; Z79.4 Long term (current) use of insulin; Z79.01 Long term (current) use of anticoagulants; Z79.899 Other long term (current) drug therapy; Z63.4 Disappearance and death of family member; Z87.891 Personal history of nicotine dependence
CPT/HCPCS: 96374; 96372 ×2; J0696; Q0163; A4216 ×3; J1815 ×2; 82009; 80053; 87086; 82948 ×3; 80061; 36415 ×3; 81001; 85025 ×2; 87186 ×2; 83735; 85730; 85610; 84484 ×3; 83880; 36416 ×4; 87088; 71045; 94760 ×2; 99285; 93005; G0378